=== PATIENT | female | born 1960 | race Caucasian/White ===

== ENCOUNTER 2017-05-19 16:40 | Inpatient (IN) | payer MEDICARE ==
--- NOTE | 2017-05-19 16:44 | PDOC ---
Rapid Medical Evaluation Time Seen by Provider: 05/19/17 16:44 Medical Evaluation: Allergies Allergy/AdvReac Type Severity Reaction Status Date / Time shellfish derived Allergy Unknown Rash Verified 03/20/13 18:11 hydrocodone bitartrate Allergy Verified 03/17/13 09:02 [From Vicodin] oxycodone HCl [From Percocet] Allergy Itching Verified 03/14/13 13:06 05/19/17 16:44 This is a 56 year old female with a history of IDDM, chronic inflammatory demyelinating polyneuropathy, HTN, hypothyroidism, polycystic kidney disease, cirrhosis of the liver presenting with 4 weeks of fevers/chills, hyperglycemia, weakness, malaise, poor appetite, nausaea/vomiting, and cough. V/s notable for P 100, BP 153/101. Alert, oriented, anxious. RRR, S1/S2, no murmurs. Lungs CTAB. Skin moist. EKG CXR Influenza swab Labs including CBC, CMP, VBG, acetone, UA To Main ED for further evaluation
[2017-05-19 17:27] LABS: BASO % 0.8 % (0-2.0); EOS % 0.8 % (0-4.5); MCH 31.9 pg (25.7-33.7); MCHC 34.7 g/dl (32.0-36.0); MEAN CELL VOLUME 92.2 fl (80-96); MEAN PLT VOLUME 9.4 fl (7.5-11.1); PLATELET COUNT 180 K/MM3 (134-434); RDW 13.1 % (11.6-15.6); WHITE BLOOD COUNT 7.7 K/mm3 (4.0-10.0)
[2017-05-19 18:08] LABS: VENOUS BLOOD GAS HCO3 28.5 meq/L (19-25); VENOUS PH 7.4 (7.32-7.42)
[2017-05-19 18:24] LABS: ALBUMIN 3.1 g/dl (3.4-5.0); ANION GAP 15 (8-16); CALCIUM 8.8 mg/dL (8.5-10.1); CO2 27 mmol/L (21-32); CREATININE 1.2 mg/dL (0.55-1.02); GLUCOSE,RANDOM 278 mg/dL (74-106); MAGNESIUM 1.3 mg/dL (1.8-2.4); SGOT/AST 29 U/L (15-37); SGPT/ALT 23 U/L (12-78)
[2017-05-19 18:25] LABS: ALK PHOS 116 U/L (45-117); BILIRUBIN,TOTAL 1.8 mg/dL (0.2-1.0); TOT PROT 6.9 g/dl (6.4-8.2)
--- NOTE | 2017-05-19 18:32 | PDOC ---
History of Present Illness - General History Source: Patient Exam Limitations: No Limitations - History of Present Illness Initial Comments: 05/19/17 18:21 The patient is a 56F with a PMH of IDDM, HTN, hypothyroidism, polycystic kidney disease, cirrhosis of liver, chronic inflammatory demyelenating polyneuropathy, who presents to the ED with complaints of weakness and nausea. The patient states that 3-4 weeks ago she began feeling weak, nauseous and "just awful". She has not been eating and drinking well of recent. She was home alone today ( lives with her daughter) and said she felt scared that she was not feeling well and decided to come to the ER. Her primary physicians are at [facility]. <Jeronimo Wood - Last Filed: 05/19/17 19:08> <Claudine Elizalde - Last Filed: 05/19/17 22:19> - General Chief Complaint: Weakness Stated Complaint: WEAKNESS Time Seen by Provider: 05/19/17 16:44 Past History - Past Medical History Anemia: Yes Asthma: No Cancer: No Cardiac Disorders: No CVA: No COPD: No CHF: No Dementia: No Diabetes: Yes (DM) GI Disorders: Yes Disorders: No HTN: Yes Hypercholesterolemia: No Kidney Stones: Yes (polycystic kidney disease) Liver Disease: Yes Seizures: No Thyroid Disease: Yes - Surgical History Abdominal Surgery: No Appendectomy: No Cardiac Surgery: No Cholecystectomy: No Lung Surgery: No Neurologic Surgery: No Orthopedic Surgery: Yes (bunion sx) - Immunization History Td Vaccination: Yes Immunization Up to Date: Yes - Suicide/Smoking/Psychosocial Hx Smoking Status: Yes Smoking History: Former smoker Years of Tobacco Use: 0 Have you smoked in the past 12 months: No Number of Cigarettes Smoked Daily: 0 If you are a former smoker, when did you quit?: 23 years ago Cigars Per Day: 0 Information on smoking cessation initiated: No Hx Alcohol Use: No Drug/Substance Use Hx: No Substance Use Type: None Hx Substance Use Treatment: No <Jeronimo Wood - Last Filed: 05/19/17 19:08> <Claudine Elizalde - Last Filed: 05/19/17 22:19> - Past Medical History Allergies/Adverse Reactions: Allergies Allergy/AdvReac Type Severity Reaction Status Date / Time shellfish derived Allergy Unknown Rash Verified 05/19/17 16:45 hydrocodone bitartrate Allergy Verified 05/19/17 16:45 [From Vicodin] oxycodone HCl [From Percocet] Allergy Itching Verified 05/19/17 16:45 Home Medications: Ambulatory Orders Cyanocobalamin Vit B-12 Inj. [Vitamin B12 Injection -] 1,000 mcg IM Mo #0 vial 02/20/13 Folic Acid - 1 mg PO DAILY #0 tablet NS 02/20/13 Gabapentin [Neurontin] 600 mg PO Q6H #0 tablet 02/20/13 Lidocaine 5% Patch [Lidoderm -] 1 patch TP DAILY #0 patch 02/20/13 Magnesium Oxide [Mag-Ox -] 400 mg PO BID #0 tablet 02/20/13 Methyl-B12/l-Mefolate/B6 Phos [Metanx Tablet] 1 tab PO BID #0 tablet 02/20/13 Metoprolol Succinate [Toprol XL -] 50 mg PO DAILY #0 tab.sr.24h 02/20/13 Sitagliptin Phos/Metformin HCl [Janumet 50-500 mg Tablet] 1 each PO BIDAC #0 tablet 02/20/13 Tramadol HCl 50 mg PO Q6H PRN #0 tablet 02/20/13 Ergocalciferol (Vitamin D2) [Vitamin D2] 2,000 unit PO DAILY 03/14/13 Insulin (Levemir) [Levemir Flexpen -] 54 units SQ DAILY@0700 05/19/17 Levothyroxine [Synthroid -] 137 mcg PO DAILY 05/19/17 Lisinopril 20 mg PO DAILY 05/19/17 Multivitamin [One Daily] 1 each PO DAILY 05/19/17 Mycophenolate Mofetil 1,000 mg PO BID 05/19/17 Potassium Chloride 20 meq PO BID 05/19/17 Review of Systems - Review of Systems Able to Perform ROS?: Yes Comments:: 05/19/17 18:39 GENERAL/CONSTITUTIONAL: No fever or chills. No weakness. HEAD, EYES, EARS, NOSE AND THROAT: No change in vision. No ear pain or discharge. No sore throat. GASTROINTESTINAL: Positive for nausea and diarrhea. No constipation or abdominal pain. GENITOURINARY: Positive for b/l flank pain. No dysuria, frequency, hematuria, or change in urination. CARDIOVASCULAR: No chest pain, palpitations, or lightheadedness. RESPIRATORY: No cough, wheezing, shortness of breath, or hemoptysis. MUSCULOSKELETAL: No joint or muscle swelling or pain. No neck or back pain. SKIN: No rash or lesions. NEUROLOGIC: No headache, or new onset numbness, tingling, weakness, loss of consciousness, or change in strength/sensation. ENDOCRINE: No increased thirst. No abnormal weight change. HEMATOLOGIC/LYMPHATIC: No anemia, easy bleeding, or history of blood clots. ALLERGIC/IMMUNOLOGIC: No hives or skin allergy. <Jeronimo Wood - Last Filed: 05/19/17 19:08> *Physical Exam - Vital Signs Last Vital Signs Temp Pulse Resp BP Pulse Ox 99.7 F H 101 H 19 153/101 95 05/19/17 16:45 05/19/17 16:45 05/19/17 16:45 05/19/17 16:45 05/19/17 16:45 - Physical Exam Comments: 05/19/17 18:40 GENERAL: Well developed, well nourished. Awake and alert. No acute distress. HEENT: Normocephalic, atraumatic. Hearing grossly normal. Moist mucous membranes. PERRLA, EOMI. No conjunctival pallor. Sclera are non-icteric. Oropharynx is clear. NECK: Supple. Full ROM. No JVD. CARDIOVASCULAR: Regular rate and rhythm. No murmurs, rubs, or gallops. Distal pulses are 2+ and symmetric. PULMONARY: No evidence of respiratory distress. Lungs clear to auscultation bilaterally. No wheezing, rales or rhonchi. ABDOMINAL: Soft. Non-tender. Non-distended. No rebound or guarding. 2-3 cm nonincarcerated, nonstrangulated hernia in infra-umbilicus. No organomegaly. Normoactive bowel sounds. GENITOURINARY: CVA tenderness bilaterally. MUSCULOSKELETAL: Normal range of motion at all joints. No bony deformities or tenderness. EXTREMITIES: No cyanosis. No clubbing. No edema. No calf tenderness. SKIN: Warm and dry. Normal capillary refill. No rashes. No jaundice. NEUROLOGICAL: Alert, awake, appropriate. Cranial nerves 2-12 intact. Normal speech. PSYCHIATRIC: Cooperative. Good eye contact. Appropriate mood and affect. <Jeronimo Wood - Last Filed: 05/19/17 19:08> - Vital Signs Last Vital Signs Temp Pulse Resp BP Pulse Ox 100.6 F H 101 H 19 153/101 95 05/19/17 19:16 05/19/17 16:45 05/19/17 16:45 05/19/17 16:45 05/19/17 16:45 <TonioClaudine - Last Filed: 05/19/17 22:19> ED Treatment Course - LABORATORY CBC & Chemistry Diagram: 05/19/17 17:00 05/19/17 17:00 - ADDITIONAL ORDERS Additional order review: Laboratory Results 05/19/17 17:00 VBG pH 7.40 POC VBG pCO2 46.9 POC VBG pO2 33.2 Mixed VBG HCO3 28.5 H 05/19/17 17:00 RBC 4.61 D MCV 92.2 MCHC 34.7 RDW 13.1 D MPV 9.4 Neutrophils % 70.0 Lymphocytes % 23.1 Monocytes % 5.3 Eosinophils % 0.8 Basophils % 0.8 <Jeronimo Wood - Last Filed: 05/19/17 19:08> - LABORATORY CBC & Chemistry Diagram: 05/19/17 17:00 05/19/17 17:00 - ADDITIONAL ORDERS Additional order review: Laboratory Results 05/19/17 05/19/17 05/19/17 19:50 18:24 17:00 VBG pH POC VBG pCO2 POC VBG pO2 Mixed VBG HCO3 Sodium Potassium Chloride Carbon Dioxide Anion Gap BUN Creatinine Creat Clearance w eGFR POC Glucometer [phone] Random Glucose Lactic Acid 2.8 H* Calcium Magnesium Total Bilirubin AST ALT Alkaline Phosphatase Total Protein Albumin Urine Color [place] Urine Appearance Cloudy Urine pH 6.0 Ur Specific [place] 1.016 Urine Protein 1+ H Urine Glucose (UA) 3+ H Urine Ketones 1+ H Urine Blood 1+ H Urine Nitrite Positive Urine Bilirubin Negative Urine Urobilinogen Negative Acetone, Qual 05/19/17 05/19/17 17:00 17:00 VBG pH 7.40 POC VBG pCO2 46.9 POC VBG pO2 33.2 Mixed VBG HCO3 28.5 H Sodium 136 Potassium 3.1 L D Chloride 94 L D Carbon Dioxide 27 Anion Gap 15 BUN 12 Creatinine 1.2 H D Creat Clearance w eGFR 46.14 POC Glucometer Random Glucose 278 H D Lactic Acid Calcium 8.8 Magnesium 1.3 L Total Bilirubin 1.8 H D AST 29 D ALT 23 D Alkaline Phosphatase 116 D Total Protein 6.9 D Albumin 3.1 L D Urine Color Urine Appearance Urine pH Ur Specific [place] Urine Protein Urine Glucose (UA) Urine Ketones Urine Blood Urine Nitrite Urine Bilirubin Urine Urobilinogen Acetone, Qual Positive small 1+ H 05/19/17 17:00 Influenza Types A,B Antigen (MAYI) - Preliminary Nasopharyngeal Swab - Preliminary 05/19/17 05/19/17 18:24 17:00 RBC 4.61 D MCV 92.2 MCHC 34.7 RDW 13.1 D MPV 9.4 Neutrophils % 70.0 Lymphocytes % 23.1 Monocytes % 5.3 Eosinophils % 0.8 Basophils % 0.8 POC Glucometer [phone] - Medications Given in the ED: ED Medications Discontinued Medications Generic Name Dose Route Start Last Admin Trade Name Freq PRN Reason Stop Dose Admin Acetaminophen 1,000 mg 05/19/17 19:14 05/19/17 19:21 Ofirmev Injection - IVPB 05/19/17 19:15 1,000 mg ONCE ONE Administration Magnesium Sulfate 2 gm 05/19/17 21:19 05/19/17 21:51 Magnesium Sulfate IVPB 05/19/17 21:20 2 gm ONCE ONE Administration Potassium Chloride 40 meq 05/19/17 21:19 05/19/17 21:50 K-Dur - PO 05/19/17 21:20 40 meq ONCE ONE Administration <Claudine Elizalde - Last Filed: 05/19/17 22:19> Medical Decision Making - Medical Decision Making 05/19/17 18:41 The patient is a 56F with a PMH of HTN, liver cirrhosis, IDDM, CIDP, who presents with 3-4 weeks of weakness and nausea. I am concerned for DKA, infection, and ACS. Pending EKG. Will monitor closely. CBC and VBG WNL. Pending chemistry and acetone. BGL is 305. Will begin fluids while labs are pending. 05/19/17 19:08 Patient signed out to night team, Dr. Elizalde. <Jeronimo Wood - Last Filed: 05/19/17 19:08> *DC/Admit/Observation/Transfer <Jeronimo Wood - Last Filed: 05/19/17 19:08> - Discharge Dispostion Admit: No <Claudine Elizalde - Last Filed: 05/19/17 22:19> Diagnosis at time of Disposition: Fever Qualifiers: Fever type: due to other condition Qualified Code(s): R50.81 - Fever presenting with conditions classified elsewhere UTI (urinary tract infection) Qualifiers: Urinary tract infection type: acute cystitis Hematuria presence: without hematuria Qualified Code(s): N30.00 - Acute cystitis without hematuria Diabetes Qualifiers: Diabetes mellitus type: type 2 Diabetes mellitus complication status: with hyperglycemia Diabetes mellitus retirement insulin use: with intermediate frame tender use Qualified Code(s): E11.65 - Type 2 diabetes mellitus with hyperglycemia - Discharge Dispostion Condition at time of disposition: Good
[2017-05-19] MEDS ORDERED: ACETAMINOPHEN 1000 MG/100 ML VIAL (NON FORMULARY) IVPB ONE (19:14)
[2017-05-19] MEDS ORDERED: ACETAMINOPHEN INJECTION 100 ML IVPB ONE (19:18)
[2017-05-19 20:06] LABS: URINE APPEARANCE CLOUDY; URINE BILIRUBIN NEGATIVE (NEGATIVE); URINE BLOOD 1+ (NEGATIVE); URINE COLOR AMBER; URINE GLUCOSE (UA) 3+ (NEGATIVE); URINE KETONE 1+ (NEGATIVE); URINE NITRITE POSITIVE (NEGATIVE); URINE UROBILINOGEN NEGATIVE mg/dL (0.2-1.0)
[2017-05-19 20:25] LABS: URINE LEUK ESTERASE 3+ (NEGATIVE); URINE PROTEIN 1+ (NEGATIVE)
[2017-05-19 21:19] LABS: ACETONE SERUM POSITIVE SMALL 1+ (NEGATIVE)
[2017-05-19] MEDS ORDERED: POTASSIUM CHLORIDE TABS 20 MEQ TABLET.ER (FP) PO ONE ×2 (21:19→21:38)
[2017-05-19] MEDS ORDERED: MAGNESIUM SULF 50% (8.12 MEQ/2 ML-1 GM VIAL) IVPB ONE (21:19)
[2017-05-19] MEDS ORDERED: MAGNESIUM SULF 50% (8.12 MEQ/2 ML-1 GM VIAL) ONE (21:38)
[2017-05-19] MEDS ORDERED: PIPERACILLIN/TAZOB 3.375 GM 50 ML IVPB ONE (21:54)
--- NOTE | 2017-05-19 22:19 | PDOC ---
*Physical Exam - Vital Signs Last Vital Signs Temp Pulse Resp BP Pulse Ox 100.6 F H 101 H 19 153/101 95 05/19/17 19:16 05/19/17 16:45 05/19/17 16:45 05/19/17 16:45 05/19/17 16:45 <Claudine Elizalde - Last Filed: 05/19/17 22:19> - Vital Signs Last Vital Signs Temp Pulse Resp BP Pulse Ox 100.6 F H 101 H 19 153/101 95 05/19/17 19:16 05/19/17 16:45 05/19/17 16:45 05/19/17 16:45 05/19/17 16:45 - Physical Exam Comments: 05/19/17 22:23 The patient is a 56-year-old female with a significant past medical history of chronic inflammatory demyelinating polyneuropathy and DM, who presents to the emergency department with generalized malaise, vomiting and nausea for 1 week. She reports hx of frequent UTIs and due to her medical condition she does not get the symptoms such as burning or dysuria she just starts not feeling well. CONSTITUTIONAL: Present: generalized malaise. Absent: fever, no chills, no fatigue EYES: Absent: visual changes ENT: Absent: ear pain, no sore throat CARDIOVASCULAR: Absent: chest pain, no palpitations RESPIRATORY: Absent: cough, no SOB GI: Present: vomiting, nausea Absent: abdominal pain, no constipation, no diarrhea GENITOURINARY: Absent: dysuria, no frequency, no hematuria MUSCULOSKELETAL: Absent: back pain, no arthralgia, no myalgia SKIN: Absent: rash NEURO: Absent: headache GENERAL: Well-appearing, well-nourished. No apparent distress. HEENT: Normocephalic, atraumatic. PERRL, EOM intact. CARDIOVASCULAR: Normal S1, S2. Regular rate and rhythm. PULMONARY: Clear to auscultation bilaterally. ABDOMEN: +Diffuse abdominal tenderness, Umbilical hernia not reducible all the way. Soft, non-distended. EXTREMITIES: Normal ROM in all four extremities. No gross deformities. SKIN: Warm, dry. No rash NEUROLOGICAL: No focal neurological deficits. <Jayashree Raman - Last Filed: 05/19/17 22:25> ED Treatment Course - LABORATORY CBC & Chemistry Diagram: 05/19/17 17:00 12/19/17 17:00 - ADDITIONAL ORDERS Additional order review: Laboratory Results 05/19/17 05/19/17 05/19/17 19:50 18:24 17:00 VBG pH POC VBG pCO2 POC VBG pO2 Mixed VBG HCO3 Sodium Potassium Chloride Carbon Dioxide Anion Gap BUN Creatinine Creat Clearance w eGFR POC Glucometer [phone] Random Glucose Lactic Acid 2.8 H* Calcium Magnesium Total Bilirubin AST ALT Alkaline Phosphatase Total Protein Albumin Urine Color [place] Urine Appearance Cloudy Urine pH 6.0 Ur Specific [place] 1.016 Urine Protein 1+ H Urine Glucose (UA) 3+ H Urine Ketones 1+ H Urine Blood 1+ H Urine Nitrite Positive Urine Bilirubin Negative Urine Urobilinogen Negative Acetone, Qual 05/19/17 05/19/17 17:00 17:00 VBG pH 7.40 POC VBG pCO2 46.9 POC VBG pO2 33.2 Mixed VBG HCO3 28.5 H Sodium 136 Potassium 3.1 L D Chloride 94 L D Carbon Dioxide 27 Anion Gap 15 BUN 12 Creatinine 1.2 H D Creat Clearance w eGFR 46.14 POC Glucometer Random Glucose 278 H D Lactic Acid Calcium 8.8 Magnesium 1.3 L Total Bilirubin 1.8 H D AST 29 D ALT 23 D Alkaline Phosphatase 116 D Total Protein 6.9 D Albumin 3.1 L D Urine Color Urine Appearance Urine pH Ur Specific [place] Urine Protein Urine Glucose (UA) Urine Ketones Urine Blood Urine Nitrite Urine Bilirubin Urine Urobilinogen Acetone, Qual Positive small 1+ H 05/19/17 17:00 Influenza Types A,B Antigen (MAYI) - Preliminary Nasopharyngeal Swab - Preliminary 05/19/17 05/19/17 18:24 17:00 RBC 4.61 D MCV 92.2 MCHC 34.7 RDW 13.1 D MPV 9.4 Neutrophils % 70.0 Lymphocytes % 23.1 Monocytes % 5.3 Eosinophils % 0.8 Basophils % 0.8 POC Glucometer [phone] - Medications Given in the ED: ED Medications Discontinued Medications Generic Name Dose Route Start Last Admin Trade Name Freq PRN Reason Stop Dose Admin Acetaminophen 1,000 mg 05/19/17 19:14 05/19/17 19:21 Ofirmev Injection - IVPB 05/19/17 19:15 1,000 mg ONCE ONE Administration Magnesium Sulfate 2 gm 05/19/17 21:19 05/19/17 21:51 Magnesium Sulfate IVPB 05/19/17 21:20 2 gm ONCE ONE Administration Potassium Chloride 40 meq 05/19/17 21:19 05/19/17 21:50 K-Dur - PO 05/19/17 21:20 40 meq ONCE ONE Administration <Claudine Elizalde - Last Filed: 05/19/17 22:19> - LABORATORY CBC & Chemistry Diagram: 05/19/17 17:00 05/19/17 17:00 - ADDITIONAL ORDERS Additional order review: Laboratory Results 05/19/17 05/19/17 05/19/17 19:50 18:24 17:00 VBG pH POC VBG pCO2 POC VBG pO2 Mixed VBG HCO3 Sodium Potassium Chloride Carbon Dioxide Anion Gap BUN Creatinine Creat Clearance w eGFR POC Glucometer [phone] Random Glucose Lactic Acid 2.8 H* Calcium Magnesium Total Bilirubin AST ALT Alkaline Phosphatase Total Protein Albumin Urine Color [place] Urine Appearance Cloudy Urine pH 6.0 Ur Specific [place] 1.016 Urine Protein 1+ H Urine Glucose (UA) 3+ H Urine Ketones 1+ H Urine Blood 1+ H Urine Nitrite Positive Urine Bilirubin Negative Urine Urobilinogen Negative Acetone, Qual 05/19/17 05/19/17 17:00 17:00 VBG pH 7.40 POC VBG pCO2 46.9 POC VBG pO2 33.2 Mixed VBG HCO3 28.5 H Sodium 136 Potassium 3.1 L D Chloride 94 L D Carbon Dioxide 27 Anion Gap 15 BUN 12 Creatinine 1.2 H D Creat Clearance w eGFR 46.14 POC Glucometer Random Glucose 278 H D Lactic Acid Calcium 8.8 Magnesium 1.3 L Total Bilirubin 1.8 H D AST 29 D ALT 23 D Alkaline Phosphatase 116 D Total Protein 6.9 D Albumin 3.1 L D Urine Color Urine Appearance Urine pH Ur Specific [place] Urine Protein Urine Glucose (UA) Urine Ketones Urine Blood Urine Nitrite Urine Bilirubin Urine Urobilinogen Acetone, Qual Positive small 1+ H 05/19/17 17:00 Influenza Types A,B Antigen (MAYI) - Preliminary Nasopharyngeal Swab - Preliminary 05/19/17 05/19/17 18:24 17:00 RBC 4.61 D MCV 92.2 MCHC 34.7 RDW 13.1 D MPV 9.4 Neutrophils % 70.0 Lymphocytes % 23.1 Monocytes % 5.3 Eosinophils % 0.8 Basophils % 0.8 POC Glucometer [phone] - Medications Given in the ED: ED Medications Discontinued Medications Generic Name Dose Route Start Last Admin Trade Name Jasen PRN Reason Stop Dose Admin Acetaminophen 1,000 mg 05/19/17 19:14 05/19/17 19:21 Ofirmev Injection - IVPB 05/19/17 19:15 1,000 mg ONCE ONE Administration Magnesium Sulfate 2 gm 05/19/17 21:19 05/19/17 21:51 Magnesium Sulfate IVPB 05/19/17 21:20 2 gm ONCE ONE Administration Potassium Chloride 40 meq 05/19/17 21:19 05/19/17 21:50 K-Dur - PO 05/19/17 21:20 40 meq ONCE ONE Administration <Jayashree Raman - Last Filed: 05/19/17 22:25> *DC/Admit/Observation/Transfer - Discharge Dispostion Admit: Yes Decision to Admit order Date/Time: Decision to Admit Order Category Date Time Status Decision to Admit to Hospital Routine Admission 05/19/17 22:02 Active <Claudine Elizalde - Last Filed: 05/19/17 22:19> - Attestations Scribe Attestion: 05/19/17 22:25 Documentation prepared by KP Hayes, acting as medical technologist microbiology for Claudine Elizalde MD/DO. <Jayashree Raman - Last Filed: 05/19/17 22:25> Diagnosis at time of Disposition: Fever Qualifiers: Fever type: due to other condition Qualified Code(s): R50.81 - Fever presenting with conditions classified elsewhere UTI (urinary tract infection) Qualifiers: Urinary tract infection type: acute cystitis Hematuria presence: without hematuria Qualified Code(s): N30.00 - Acute cystitis without hematuria Diabetes Qualifiers: Diabetes mellitus type: type 2 Diabetes mellitus complication status: with hyperglycemia Diabetes mellitus superintendent marine oil terminal insulin use: with superintendent marine oil terminal use Qualified Code(s): E11.65 - Type 2 diabetes mellitus with hyperglycemia - Discharge Dispostion Condition at time of disposition: Good
[2017-05-19] MEDS ORDERED: PIPERACILLIN/TAZOB 3.375 GM 3.375 GM/50 ML BAG IVPB ONE (22:26)
[2017-05-19 22:48] LABS: URINE LEUK ESTERASE 1+ (NEGATIVE)
[2017-05-19 23:12] LABS: URINE BACTERIA RARE /hpf (NONE SEEN); URINE MUCUS RARE; URINE RBC 13 /hpf (0-3); URINE WBC 1738 /hpf (3-5)
--- NOTE | 2017-05-19 23:13 | PN ---
Teaching Attending Note Name of Resident: Khalif Limon ATTENDING PHYSICIAN STATEMENT I saw and evaluated the patient. I reviewed the resident's note and discussed the case with the resident. I agree with the resident's findings and plan as documented. SUBJECTIVE: 56 yo F with chronic inflammatory demylinating polyneuropathy, DM and chronic UTI's presents with mailaise, nausea and vomiting. Does not feel urinary burning /dysuria, but does have malaise with her urinary tract infections. No shortness of breath OBJECTIVE: Physical: VS: Vital Signs Period Temp Pulse Resp BP Sys/Muñoz Pulse Ox Last 24 Hr 99.4 F-100.6 F 71-101 18-19 111-153/67-101 91-95 02 95% RA, 91 in chart not correct GEN: NAD, Resting in bed, AA0X3 HEENT: NCAT, PERRL, Throat without erythema or exudates CARD: RRR S1, S2 RESP: CTAB ABD: BSX4, NTD to palpation, Umbilical hernia, + CVA tenderness EXT: - C/C/E CBCD WBC 7.7 K/mm3 (4.0-10.0) 05/19/17 17:00 RBC 4.61 M/mm3 (3.60-5.2) D 05/19/17 17:00 Hgb 14.7 GM/dL (10.7-15.3) D 05/19/17 17:00 Hct 42.4 % (32.4-45.2) D 05/19/17 17:00 MCV 92.2 fl (80-96) 05/19/17 17:00 MCHC 34.7 g/dl (32.0-36.0) 05/19/17 17:00 RDW 13.1 % (11.6-15.6) D 05/19/17 17:00 Plt Count 180 K/MM3 (134-434) D 05/19/17 17:00 MPV 9.4 fl (7.5-11.1) 05/19/17 17:00 CMP Sodium 136 mmol/L (136-145) 05/19/17 17:00 Potassium 3.1 mmol/L (3.5-5.1) L D 05/19/17 17:00 Chloride 94 mmol/L (98-107) L D 05/19/17 17:00 Carbon Dioxide 27 mmol/L (21-32) 05/19/17 17:00 Anion Gap 15 (8-16) 05/19/17 17:00 BUN 12 mg/dL (7-18) 05/19/17 17:00 Creatinine 1.2 mg/dL (0.55-1.02) H D 05/19/17 17:00 Creat Clearance w eGFR 46.14 (>60) 05/19/17 17:00 Calcium 8.8 mg/dL (8.5-10.1) 05/19/17 17:00 Total Bilirubin 1.8 mg/dL (0.2-1.0) H D 05/19/17 17:00 AST 29 U/L (15-37) D 05/19/17 17:00 ALT 23 U/L (12-78) D 05/19/17 17:00 Alkaline Phosphatase 116 U/L (45-117) D 05/19/17 17:00 Total Protein 6.9 g/dl (6.4-8.2) D 05/19/17 17:00 Albumin 3.1 g/dl (3.4-5.0) L D 05/19/17 17:00 Urine Test Results Urine Color [place] 05/19/17 19:50 Urine Appearance Cloudy 05/19/17 19:50 Urine pH 6.0 (5.0-8.0) 05/19/17 19:50 Ur Specific [place] 1.016 (1.001-1.035) 05/19/17 19:50 Urine Protein 1+ (NEGATIVE) H 05/19/17 19:50 Urine Glucose (UA) 3+ (NEGATIVE) H 05/19/17 19:50 Urine Ketones 1+ (NEGATIVE) H 05/19/17 19:50 Urine Blood 1+ (NEGATIVE) H 05/19/17 19:50 Urine Nitrite Positive (NEGATIVE) 05/19/17 19:50 Urine Bilirubin Negative (NEGATIVE) 05/19/17 19:50 Ur Leukocyte Esterase 1+ (NEGATIVE) H 05/19/17 19:50 Ur Epithelial Cells Moderate /HPF (FEW) 05/19/17 19:50 Urine Bacteria Rare /hpf (NONE SEEN) 05/19/17 19:50 Urine Mucus Rare 05/19/17 19:50 Ambulatory Orders Cyanocobalamin Vit B-12 Inj. [Vitamin B12 Injection -] 1,000 mcg IM Mo #0 vial 02/20/13 Folic Acid - 1 mg PO DAILY #0 tablet NS 02/20/13 Gabapentin [Neurontin] 600 mg PO Q6H #0 tablet 02/20/13 Lidocaine 5% Patch [Lidoderm -] 1 patch TP DAILY #0 patch 02/20/13 Magnesium Oxide [Mag-Ox -] 400 mg PO BID #0 tablet 02/20/13 Methyl-B12/l-Mefolate/B6 Phos [Metanx Tablet] 1 tab PO BID #0 tablet 02/20/13 Metoprolol Succinate [Toprol XL -] 50 mg PO DAILY #0 tab.sr.24h 02/20/13 Sitagliptin Phos/Metformin HCl [Janumet 50-500 mg Tablet] 1 each PO BIDAC #0 tablet 02/20/13 Tramadol HCl 50 mg PO Q6H PRN #0 tablet 02/20/13 Ergocalciferol (Vitamin D2) [Vitamin D2] 2,000 unit PO DAILY 03/14/13 Insulin (Levemir) [Levemir Flexpen -] 54 units SQ DAILY@0700 05/19/17 Levothyroxine [Synthroid -] 137 mcg PO DAILY 05/19/17 Lisinopril 20 mg PO DAILY 05/19/17 Multivitamin [One Daily] 1 each PO DAILY 05/19/17 Mycophenolate Mofetil 1,000 mg PO BID 05/19/17 Potassium Chloride 20 meq PO BID 05/19/17 EKG: Q waves inferior leads, lateral leads, QtC 508 CXR- No acute process ASSESSMENT AND PLAN: 56 yo F with chronic inflammatory demylinating polyneuropathy, HTN, Hypothyriodism, DM and chronic UTI's presents with mailaise, found to be septic due to uti 1.) Severe Sepsis Secondary to Pyelonephritis - Immunocompromised due to Cell Cept - Hernandez Cx - IVF gentle - Repeat LA - Ceftriaxone, Prior + Kleb-sens - Ct abdomen wo con 2.) DM - FS - RAISS - Hold Janumet 3.) Chronic Demylinating Polyneuropathy - C/W Home meds - Cell Cept level 4.) WINTER - IVF - Avoid nephrotoxins - CellCept level - Trend Cr - U lytes 5.) Prolonged QtC - Replete K, Mg2+ - Monitor - Avoid Prolonging meds - Hold Ry 6.) Hypothyriodism - Chk. TSH - C/W Levothyroxine 7.) Dvt Ppx - Heparin [address] in Obs
[2017-05-20] MEDS ORDERED: SODIUM CHLORIDE 1,000 ML IV SCH (02:15)
--- NOTE | 2017-05-20 02:27 | HP ---
CHIEF COMPLAINT: "Another UTI" PCP: None HISTORY OF PRESENT ILLNESS: 56 yo F w/ pmh of IDDM, hypothyroidism, PKD, liver cirrhosis, and chronic inflammatory demyelinating polyneuropathy who presented to the ED in the setting of 3-4 weeks of progressive malaise/fatigue w/ accompanying persistent productive cough, diarrhea/abdominal pain and poor PO intake. At baseline, Pt takes Cellcept chronically for CIDP and endorses a hx of 8x UTIs/pyelonephritis over the past year, each requiring hospitalization, most notable for an ICU admission in September for 1.5 months for severe sepsis secondary to UTI. Per pt, 3-4 wks began having productive cough, diarrhea/nausea, general malaise and weakness. Pt states these symptoms are similar to prior UTIs in the past. She denies any dysuria, pyuria, hematuria or other infectious symptoms at the time. These symptoms have continued to persist until her current visit, as well as recent subjective chills/fevers, continued poor PO intake and persistent chronic band-like abdominal pain and BL flank pain over the past few days. She denies any LIM, SOB, CP, palpitations, dysuria, constipation, new rashes, new neuro symptoms. She denies any recent travel or sick contacts. Pt states she has been off Cellcept for past 3 months due to chronic infections. She currently has no PCP. ER course was notable for: (1) Lactic acid 2.8 (2) UA + leuk esterase, nitrites (3)Temp 100.6 Recent Travel: No PAST MEDICAL HISTORY: Multiple UTIs (8x over last years, admitted every time) Pyelonephritis x2 C diff infection 02/15 at [facility], 10/15 at [facility] [place] CIDP IDDM HTN Hypothyroidism polycystic kidney dz Cirrhosis Diabetic neuropathy PAST SURGICAL HISTORY: Bunion removal Social History: Smoking: Prior smoker in 20s Alcohol: Social drinker, 2-3 drinks Drugs: None On disability, requires wheelchair for transport due to chronic LE weakness Family History: Allergies shellfish derived Allergy (Unknown, Verified 05/19/17 16:45) Rash pt reports allergy to shellfish hydrocodone bitartrate [From Vicodin] Allergy (Verified 05/19/17 16:45) patient relayed it made her disoriented oxycodone HCl [From Percocet] Allergy (Verified 05/19/17 16:45) Itching HOME MEDICATIONS: Home Medications Medication Instructions Recorded Cyanocobalamin Vit B-12 Inj. 1,000 mcg IM Mo #0 vial 02/20/13 [Vitamin B12 Injection -] Folic Acid - 1 mg PO DAILY #0 tablet NS 02/20/13 Gabapentin [Neurontin] 600 mg PO Q6H #0 tablet 02/20/13 Lidocaine 5% Patch [Lidoderm -] 1 patch TP DAILY #0 patch 02/20/13 Magnesium Oxide [Mag-Ox -] 400 mg PO BID #0 tablet 02/20/13 Methyl-B12/l-Mefolate/B6 Phos 1 tab PO BID #0 tablet 02/20/13 [Metanx Tablet] Metoprolol Succinate [Toprol XL -] 50 mg PO DAILY #0 tab.sr.24h 02/20/13 Sitagliptin Phos/Metformin HCl 1 each PO BIDAC #0 tablet 02/20/13 [Janumet 50-500 mg Tablet] Tramadol HCl 50 mg PO Q6H PRN #0 tablet 02/20/13 Ergocalciferol (Vitamin D2) 2,000 unit PO DAILY 03/14/13 [Vitamin D2] Insulin (Levemir) [Levemir Flexpen 54 units SQ DAILY@0700 05/19/17 -] Levothyroxine [Synthroid -] 137 mcg PO DAILY 05/19/17 Lisinopril 20 mg PO DAILY 05/19/17 Multivitamin [One Daily] 1 each PO DAILY 05/19/17 Mycophenolate Mofetil 1,000 mg PO BID 05/19/17 Potassium Chloride 20 meq PO BID 05/19/17 REVIEW OF SYSTEMS CONSTITUTIONAL: malaise, generalized weakness, loss of appetite, Absent: fever, chills, diaphoresis, weight change HEENT: Absent: rhinorrhea, nasal congestion, throat pain, throat swelling, difficulty swallowing, mouth swelling, ear pain, eye pain, visual changes CARDIOVASCULAR: Absent: chest pain, syncope, palpitations, irregular heart rate, lightheadedness , peripheral edema RESPIRATORY: cough Absent: shortness of breath, dyspnea with exertion, orthopnea, wheezing, stridor , hemoptysis GASTROINTESTINAL: abdominal pain, diarrhea, Absent: abdominal distension, nausea, vomiting, constipation, melena, hematochezia GENITOURINARY: flank pain Absent: dysuria, frequency, urgency, hesitancy, hematuria, genital pain MUSCULOSKELETAL: Absent: myalgia, arthralgia, joint swelling, back pain, neck pain SKIN: Absent: rash, itching, pallor HEMATOLOGIC/IMMUNOLOGIC: frequent UTIs Absent: easy bleeding, easy bruising, lymphadenopathy, ENDOCRINE: Absent: unexplained weight gain, unexplained weight loss, heat intolerance, cold intolerance NEUROLOGIC: unsteady gait, BL LE chronic weakness Absent: headache, focal weakness or paresthesias, dizziness, seizure, mental status changes, bladder or bowel incontinence PSYCHIATRIC: Absent: anxiety, depression, suicidal or homicidal ideation, hallucinations. PHYSICAL EXAMINATION Vital Signs - 24 hr 05/19/17 05/19/17 05/19/17 16:45 19:16 22:53 Temperature 99.7 F H 100.6 F H 99.4 F Pulse Rate 101 H Pulse Rate [ 71 Right Radial] Respiratory 19 18 Rate Blood Pressure 153/101 Blood Pressure 111/67 [Right Arm] O2 Sat by Pulse 95 91 L Oximetry (%) GENERAL: Awake, alert, and fully oriented, in no acute distress. HEAD: Normal with no signs of trauma. EYES: Pupils equal, round and reactive to light, extraocular movements intact, sclera anicteric, conjunctiva clear. No lid lag. EARS, NOSE, THROAT: Ears normal, nares patent, oropharynx clear without exudates. Moist mucous membranes. NECK: Normal range of motion, supple without lymphadenopathy, JVD, or masses. LUNGS: Trace wheezing DERRICK. Otherwise CTA. no crackles. No accessory muscle use. HEART: Regular rate and rhythm, normal S1 and S2 without murmur, rub or gallop. ABDOMEN: Tender to superficial and deep palpation in midline subxiphoid and LUQ , with occasional voluntary guarding. Soft, not distended, Hypoactive bowel sounds, no rebound, no masses. Negative mayfield's. No hepatomegaly or splenomegaly. 2-3 cm umbilical hernia noted. MUSCULOSKELETAL: BL CVA tenderness. Normal range of motion at all joints. No bony deformities or tenderness. UPPER EXTREMITIES: 2+ pulses, warm, well-perfused. No cyanosis. No clubbing. No peripheral edema. LOWER EXTREMITIES: 1+ pulses DP BL, 2+ PT BL. BL cool to touch. No calf tenderness. No peripheral edema. NEUROLOGICAL: Cranial nerves II-XII intact. Normal speech. Normal gait. 5/5 strength in upper extremities, preserved light touch sensation. 2+ BL biceps reflexes. 2/5 flexion/extension at hip BL. 3/5 flex, extension at knees BL. 3/5 dorsiflexion BL, 4/5 plantar flexion BL. Unable to elicit patellar reflexes BL. No sensation to light touch in dorsal/plantar surfaces of feet BL, proprioception at ankles preserved BL. Sensation to light touch diminished BL in shanks, preserved in upper thighs BL. PSYCHIATRIC: Cooperative. Good eye contact. Appropriate mood and affect. SKIN: Warm, dry, normal turgor, no rashes or lesions noted, normal capillary refill. Laboratory Results - last 24 hr CBC, BMP 05/19/17 17:00 05/19/17 17:00 05/19/17 05/19/17 05/19/17 17:00 17:00 17:00 WBC 7.7 RBC 4.61 D Hgb 14.7 D Hct 42.4 D MCV 92.2 MCH 31.9 MCHC 34.7 RDW 13.1 D Plt Count 180 D MPV 9.4 Neutrophils % 70.0 Lymphocytes % 23.1 Monocytes % 5.3 Eosinophils % 0.8 Basophils % 0.8 VBG pH 7.40 POC VBG pCO2 46.9 POC VBG pO2 33.2 Mixed VBG HCO3 28.5 H Sodium 136 Potassium 3.1 L D Chloride 94 L D Carbon Dioxide 27 Anion Gap 15 BUN 12 Creatinine 1.2 H D Creat Clearance w eGFR 46.14 POC Glucometer Random Glucose 278 H D Lactic Acid Calcium 8.8 Magnesium 1.3 L Total Bilirubin 1.8 H D AST 29 D ALT 23 D Alkaline Phosphatase 116 D Total Protein 6.9 D Albumin 3.1 L D Urine Color Urine Appearance Urine pH Ur Specific [place] Urine Protein Urine Glucose (UA) Urine Ketones Urine Blood Urine Nitrite Urine Bilirubin Urine Urobilinogen Ur Leukocyte Esterase Urine WBC (Auto) Urine RBC (Auto) Ur Epithelial Cells Urine Bacteria Urine Mucus Acetone, Qual Positive small 1+ H 05/19/17 05/19/17 05/19/17 17:00 18:24 19:50 WBC RBC Hgb Hct MCV MCH MCHC RDW Plt Count MPV Neutrophils % Lymphocytes % Monocytes % Eosinophils % Basophils % VBG pH POC VBG pCO2 POC VBG pO2 Mixed VBG HCO3 Sodium Potassium Chloride Carbon Dioxide Anion Gap BUN Creatinine Creat Clearance w eGFR POC Glucometer [phone] Random Glucose Lactic Acid 2.8 H* Calcium Magnesium Total Bilirubin AST ALT Alkaline Phosphatase Total Protein Albumin Urine Color [place] Urine Appearance Cloudy Urine pH 6.0 Ur Specific [place] 1.016 Urine Protein 1+ H Urine Glucose (UA) 3+ H Urine Ketones 1+ H Urine Blood 1+ H Urine Nitrite Positive Urine Bilirubin Negative Urine Urobilinogen Negative Ur Leukocyte Esterase 1+ H Urine WBC (Auto) 1738 Urine RBC (Auto) 13 Ur Epithelial Cells Moderate Urine Bacteria Rare Urine Mucus Rare Acetone, Qual Microbiology 05/19/17 17:00 Nasopharyngeal Swab Influenza Types A,B Antigen (MAYI) - Preliminary 05/19/17 17:00 Nasopharyngeal Swab - Preliminary Studies: EKG 05/19 - Rate of 87, NAD, low voltage, QTC 502 Renal U/S 05/19 - Read pending CXR 05/19 - No evidence of focal consolidations, vascular congestion, pneumothorax. ASSESSMENT/PLAN: 56 yo F w/ pmh of IDDM, PKD, chronic inflammatory demyelinating polyneuropathy ( takes cellcept, currently off per pt), chronic UTIs who presented to the ED in the setting of 3-4 weeks of progressive malaise/fatigue, w/ productive cough, diarrhea/abdominal pain, w/ similar presentations to prior UTIs in past admissions this year. #Sepsis secondary to suspected pyelonephritis - Immunosuppressed. Multiple UTIs (8x) in past year. - IVFs - Cetriaxone 1g qD - Hernandez culture - Trend Lactate - CT abdomen w/o contrast - F/u renal u/s results - Trend fever, WBC count #DM2 - Confirm home levemir dose in AM. Currently on SS. Janumet held - BGM ACHS - ISS - F/u home levemir dosing - Hold Janumet #CIDP - Wheelchair-bound. Takes Cellcept, off for past 3 months per pt. Confirm with neurologist - Cell-cept level - F/u w/ neurologist as outpt #WINTER - Cr 1.2 on admission. 0.6 on prior admission in 2012 - Trend Cr, daily BMPs - Urine lytes - Avoid nephrotoxic agents - Hold home lisinopril - Gentle IVFs #Chronic Diarrhea/abdominal pain - Prior C. Diff infections x2 this year - C diff Ag - Stool cultures - Monitor for diarrhea - f/u lipase - abdominal CT wo contrast #Hypothyroidism - check TSH - Continue home synthroid #Prolonged QTC - QTc 502 on 05/19, K/mag repleted - Avoid QT prolonging meds - Replete K/Mg as needed - Avoid levaquin for UTI tx PPX: Heparin Subq FEN: NS 75cc/hr Daily BMPs, Trend K, Mg Diabetic Diet Dispo: Obs pt Plan discussed with attending, Dr. Katarina Limon, PGY1 Visit type - Emergency Visit Emergency Visit: Yes ED Registration Date: 05/19/17 Care time: The patient presented to the Emergency Department on the above date and was hospitalized for further evaluation of their emergent condition. - New Patient This patient is new to me today: Yes Date on this admission: 05/20/17 - Critical Care Critical Care patient: No
[2017-05-20 03:01] VITALS: BMI 33.9
[2017-05-20] MEDS ORDERED: LEVOTHYROXINE NA 25 MCG TABLET (FP) ONE (05:35)
[2017-05-20] MEDS ORDERED: LEVOTHYROXINE NA 112 MCG TABLET (FP) ONE (05:35)
[2017-05-20] MEDS ORDERED: INSULIN (NOVOLOG) ASPART 100 UNITS/ML 10ML VIAL ONE ×3 (05:35→20:59)
[2017-05-20] MEDS: HEPARIN NA (PORCINE) 5,000 UNITS/ML 1ML VIAL SQ SCH ×3 (06:04→21:06)
[2017-05-20] MEDS: GABAPENTIN 300 MG CAPSULE (FP) PO SCH ×4 (06:05→23:24)
[2017-05-20] MEDS: LEVOTHYROXINE 112 MCG, LEVOTHYROXINE 25 MCG PO SCH (06:05)
[2017-05-20] MEDS: INSULIN SLIDING SCALE (NOVOLOG) 1 VIAL SQ SCH ×4 (06:07→21:06)
[2017-05-20] MEDS ORDERED: INSULIN SLIDING SCALE (NOVOLOG) 1 VIAL SQ SCH (07:00)
[2017-05-20 07:58] LABS: BASO % 0.8 % (0-2.0); EOS % 2.3 % (0-4.5); MCH 31.4 pg (25.7-33.7); MCHC 33.4 g/dl (32.0-36.0); MEAN CELL VOLUME 94.1 fl (80-96); MEAN PLT VOLUME 9.1 fl (7.5-11.1); NEUT % 55.6 % (42.8-82.8); PLATELET COUNT 120 K/MM3 (134-434); RDW 13.3 % (11.6-15.6); WHITE BLOOD COUNT 4.6 K/mm3 (4.0-10.0)
[2017-05-20] MEDS ORDERED: sitaGLIPtin PHOSPHATE 50 MG TABLET PO ONE (08:05)
[2017-05-20 08:33] LABS: ALBUMIN 2.6 g/dl (3.4-5.0); ALK PHOS 95 U/L (45-117); ANION GAP 13 (8-16); BILIRUBIN,TOTAL 1.6 mg/dL (0.2-1.0); CALCIUM 7.7 mg/dL (8.5-10.1); CO2 24 mmol/L (21-32); CREATININE 1.1 mg/dL (0.55-1.02); MAGNESIUM 2.1 mg/dL (1.8-2.4); PHOSPHOROUS 2.4 mg/dL (2.5-4.9); SGOT/AST 16 U/L (15-37); SGPT/ALT 19 U/L (12-78); THYROID STIMULATING HORMONE 7.12 uIU/ml (0.358-3.74); TOT PROT 5.8 g/dl (6.4-8.2)
[2017-05-20 08:51] LABS: GLUCOSE,RANDOM 320 mg/dL (74-106)
[2017-05-20] MEDS ORDERED: PT OWN MED DRAWER 7, Y5N ONE ×2 (09:25→17:19)
[2017-05-20] MEDS: MAGNESIUM OXIDE 400 MG TABLET (FP) PO SCH ×2 (09:27→21:05)
[2017-05-20] MEDS: POTASSIUM CHLORIDE TABS 20 MEQ TABLET.ER (FP) PO SCH (09:27)
[2017-05-20] MEDS: METOPROLOL SUCCINATE 50 MG TAB.SR.24H (FP) PO SCH (09:27)
[2017-05-20] MEDS: LIDOCAINE 5% TOPICAL PATCH TP SCH (09:27)
[2017-05-20] MEDS: FOLIC ACID 1 MG TABLET (FP) PO SCH (09:27)
[2017-05-20] MEDS: CEFTRIAXONE 1 G/50 ML PREMIX 50 ML IVPB SCH (09:27)
[2017-05-20] MEDS: CHOLECALCIFEROL (VITAMIN D3) 1,000 UNIT TABLET (FP) PO SCH (09:27)
[2017-05-20] MEDS ORDERED: LIDOCAINE 5% TOPICAL PATCH TP SCH (10:00)
[2017-05-20] MEDS ORDERED: LEVOTHYROXINE NA 125 MCG TABLET (FP) PO SCH (10:00)
--- NOTE | 2017-05-20 11:20 | EKG ---
Test Reason : Blood Pressure : / mmHG Vent. Rate : 087 BPM Atrial Rate : 087 BPM P-R Int : 158 ms QRS Dur : 078 ms QT Int : 418 ms P-R-T Axes : 080 -26 101 degrees QTc Int : 502 ms POOR DATA QUALITY, INTERPRETATION MAY BE ADVERSELY AFFECTED SINUS RHYTHM WITH PREMATURE SUPRAVENTRICULAR COMPLEXES LOW VOLTAGE QRS INFERIOR INFARCT , AGE UNDETERMINED CANNOT RULE OUT ANTERIOR INFARCT (CITED ON OR BEFORE 18-FEB-2013) ABNORMAL ECG WHEN COMPARED WITH ECG OF 18-FEB-2013 21:10, PREMATURE SUPRAVENTRICULAR COMPLEXES ARE NOW PRESENT NONSPECIFIC T WAVE ABNORMALITY NOW EVIDENT IN LATERAL LEADS Confirmed by REINALDO DRUMMOND, ZI ([id number]) on 05/20/2017 11:20:12 AM Referred By: Confirmed By:ZI NAJERA MD
[2017-05-20] MEDS ORDERED: LOPERAMIDE HCL 2 MG CAPSULE PO ONE (13:40)
[2017-05-20] MEDS ORDERED: POTASSIUM PHOSPHATE 15 MM in SODIUM CHLORIDE 250 ML IVPB ONE (16:06)
[2017-05-20] MEDS ORDERED: INSULIN DETEMIR 100 UNITS/ML MDV SQ ONE ×2 (19:04→22:00)
--- NOTE | 2017-05-20 19:04 | PN ---
Teaching Attending Note Name of Resident: Alyx Solis ATTENDING PHYSICIAN STATEMENT Time of evaluation: 12:30 PM I saw and evaluated the patient. I reviewed the resident's note and discussed the case with the resident. I agree with the resident's findings and plan as documented. SUBJECTIVE: Patient seen and examined. feels better, less fatigues, vague lower abdominal pain which has improved. No flank pain, fevers or chills. resolved nausea/ vomiting, eating better. OBJECTIVE: Vital Signs Period Temp Pulse Resp BP Sys/Muñoz Pulse Ox Last 24 Hr 97.9 F-100.6 F 70-84 18-20 104-156/67-80 91-96 Intake & Output 05/17/17 05/18/17 05/19/17 05/20/17 23:59 23:59 23:59 23:59 Intake Total 1500 Balance 1500 Weight 215 lb 220 lb General: sitting wheelchair in no acute distress CVS:s1S2 regular Chest: CTAB, no rales or wheezing abdomen: soft,mild lower abdominal tenderness, no voluntary or involuntary guarding or rigidity, positive bowel sounds, no CVA tenderness Home Medication List Medication Instructions Recorded Confirmed Type Ergocalciferol (Vitamin D2) 2,000 unit PO DAILY 03/14/13 05/19/17 History [Vitamin D2] Insulin (Levemir) [Levemir Flexpen 54 units SQ DAILY@0700 05/19/17 05/19/17 History -] Levothyroxine [Synthroid -] 137 mcg PO DAILY 05/19/17 05/19/17 History Lisinopril 20 mg PO DAILY 05/19/17 05/19/17 History Multivitamin [One Daily] 1 each PO DAILY 05/19/17 05/19/17 History Mycophenolate Mofetil 1,000 mg PO BID 05/19/17 05/19/17 History Potassium Chloride 20 meq PO BID 05/19/17 05/19/17 History Active Medications Generic Name Dose Route Start Last Admin Trade Name Freq PRN Reason Stop Dose Admin Cholecalciferol 2,000 unit 05/20/17 10:00 05/20/17 09:27 Vitamin D3 - PO 2,000 unit DAILY JASMYN Administration Folic Acid 1 mg 05/20/17 10:00 05/20/17 09:27 Folic Acid - PO 1 mg DAILY JASMYN Administration Gabapentin 600 mg 05/20/17 06:00 05/20/17 17:22 Neurontin - PO 600 mg Q6HPO JASMYN Administration Heparin Sodium (Porcine) 5,000 unit 05/20/17 06:00 05/20/17 13:27 Heparin - SQ 5,000 unit TID JASMYN Administration CEFTRIAXONE 1 G/50 ML PREMIX 50 mls @ 100 mls/hr 05/20/17 10:00 05/20/17 09: 27 Ceftriaxone 1 Gm-D5w Bag IVPB 100 mls/hr DAILY JASMYN Administration Sodium Chloride 1,000 mls @ 50 mls/hr 05/20/17 02:15 05/20/17 02:13 Normal Saline - IV 05/21/17 02:02 50 mls/hr ASDIR JASMYN Administration Potassium Phosphate 15 mm/ 255 mls @ 62.5 mls/hr 05/20/17 16:06 05/20/17 17: 22 Sodium Chloride IVPB 05/20/17 20:10 62.5 mls/hr ONCE ONE Administration Insulin Aspart 1 vial 05/20/17 07:00 05/20/17 16:30 Novolog Vial Sliding Scale - SQ 6 unit ACHS JASMYN Administration Protocol Levothyroxine Sodium 112 mcg/ 137 mcg 05/20/17 07:00 05/20/17 06:05 Levothyroxine Sodium 25 mcg PO 137 mcg DAILY@0700 JASMYN Administration Lidocaine 1 patch 05/20/17 10:00 05/20/17 09:27 Lidoderm Patch - TP 1 patch DAILY JASMYN Administration Loperamide HCl 1 mg 05/20/17 22:00 Imodium - PO Q8H PRN DIARRHEA Magnesium Oxide 400 mg 05/20/17 10:00 05/20/17 09:27 Mag-Ox - PO 400 mg BID JASMYN Administration Metoprolol Succinate 50 mg 05/20/17 10:00 05/20/17 09:27 Toprol Xl - PO 50 mg DAILY JASMYN Administration Miscellaneous 1 each 05/20/17 22:00 Lidoderm Patch Removal MC DAILY@2200 JASMYN Non-Formulary Medication 1 tab 05/20/17 10:00 Methyl-B12/L-Mefolate/B6 Phos [Metanx Tablet] PO BID JASMYN Potassium Chloride 20 meq 05/20/17 10:00 05/20/17 09:27 K-Dur - PO 20 meq BID JASMYN Administration Sitagliptin Phosphate 50 mg 05/21/17 07:00 Januvia - PO DAILY@0700 [facility] Laboratory Results - last 24 hr 05/19/17 05/19/17 05/19/17 17:00 17:00 18:24 WBC RBC Hgb Hct MCV MCH MCHC RDW Plt Count MPV Neutrophils % Lymphocytes % Monocytes % Eosinophils % Basophils % Sodium 136 Potassium 3.1 L D Chloride 94 L D Carbon Dioxide 27 Anion Gap 15 BUN 12 Creatinine 1.2 H D Creat Clearance w eGFR 46.14 POC Glucometer [phone] Random Glucose 278 H D Lactic Acid 2.8 H* Calcium 8.8 Phosphorus Magnesium 1.3 L Total Bilirubin 1.8 H D AST 29 D ALT 23 D Alkaline Phosphatase 116 D Total Protein 6.9 D Albumin 3.1 L D Lipase TSH Urine Color Urine Appearance Urine pH Ur Specific [place] Urine Protein Urine Glucose (UA) Urine Ketones Urine Blood Urine Nitrite Urine Bilirubin Urine Urobilinogen Ur Leukocyte Esterase Urine WBC (Auto) Urine RBC (Auto) Ur Epithelial Cells Urine Bacteria Urine Mucus Ur Random Sodium Urine Creatinine Acetone, Qual Positive small 1+ H 05/19/17 05/20/17 05/20/17 19:50 02:30 02:30 WBC RBC Hgb Hct MCV MCH MCHC RDW Plt Count MPV Neutrophils % Lymphocytes % Monocytes % Eosinophils % Basophils % Sodium Potassium Chloride Carbon Dioxide Anion Gap BUN Creatinine Creat Clearance w eGFR POC Glucometer Random Glucose Lactic Acid 1.9 Calcium Phosphorus Magnesium Total Bilirubin AST ALT Alkaline Phosphatase Total Protein Albumin Lipase TSH Urine Color [place] Urine Appearance Cloudy Urine pH 6.0 Ur Specific [place] 1.016 Urine Protein 1+ H Urine Glucose (UA) 3+ H Urine Ketones 1+ H Urine Blood 1+ H Urine Nitrite Positive Urine Bilirubin Negative Urine Urobilinogen Negative Ur Leukocyte Esterase 1+ H Urine WBC (Auto) 1738 Urine RBC (Auto) 13 Ur Epithelial Cells Moderate Urine Bacteria Rare Urine Mucus Rare Ur Random Sodium 42 Urine Creatinine 137.0 Acetone, Qual 05/20/17 05/20/17 05/20/17 06:00 06:00 06:03 WBC 4.6 D RBC 3.96 Hgb 12.4 D Hct 37.2 MCV 94.1 MCH 31.4 MCHC 33.4 RDW 13.3 Plt Count 120 L D MPV 9.1 Neutrophils % 55.6 D Lymphocytes % 35.6 D Monocytes % 5.7 Eosinophils % 2.3 D Basophils % 0.8 Sodium 139 Potassium 3.2 L Chloride 102 Carbon Dioxide 24 Anion Gap 13 BUN 12 Creatinine 1.1 H Creat Clearance w eGFR 51.02 POC Glucometer 324 Random Glucose 320 H* Lactic Acid Calcium 7.7 L Phosphorus 2.4 L D Magnesium 2.1 D Total Bilirubin 1.6 H AST 16 D ALT 19 Alkaline Phosphatase 95 Total Protein 5.8 L Albumin 2.6 L Lipase 69 L TSH 7.12 H Urine Color Urine Appearance Urine pH Ur Specific [place] Urine Protein Urine Glucose (UA) Urine Ketones Urine Blood Urine Nitrite Urine Bilirubin Urine Urobilinogen Ur Leukocyte Esterase Urine WBC (Auto) Urine RBC (Auto) Ur Epithelial Cells Urine Bacteria Urine Mucus Ur Random Sodium Urine Creatinine Acetone, Qual 05/20/17 05/20/17 11:28 16:29 WBC RBC Hgb Hct MCV MCH MCHC RDW Plt Count MPV Neutrophils % Lymphocytes % Monocytes % Eosinophils % Basophils % Sodium Potassium Chloride Carbon Dioxide Anion Gap BUN Creatinine Creat Clearance w eGFR POC Glucometer 318 282 Random Glucose Lactic Acid Calcium Phosphorus Magnesium Total Bilirubin AST ALT Alkaline Phosphatase Total Protein Albumin Lipase TSH Urine Color Urine Appearance Urine pH Ur Specific [place] Urine Protein Urine Glucose (UA) Urine Ketones Urine Blood Urine Nitrite Urine Bilirubin Urine Urobilinogen Ur Leukocyte Esterase Urine WBC (Auto) Urine RBC (Auto) Ur Epithelial Cells Urine Bacteria Urine Mucus Ur Random Sodium Urine Creatinine Acetone, Qual Microbiology 05/19/17 16:38 Blood - Peripheral Venous Blood Culture - Preliminary NO GROWTH OBTAINED AFTER 24 HOURS, INCUBATION TO CONTINUE FOR 4 DAYS. 05/19/17 16:59 Blood - Peripheral Venous Blood Culture - Preliminary NO GROWTH OBTAINED AFTER 24 HOURS, INCUBATION TO CONTINUE FOR 4 DAYS. 05/19/17 17:00 Nasopharyngeal Swab Influenza Types A,B Antigen (MAYI) - Final 05/19/17 17:00 Nasopharyngeal Swab - Final renal ultrasound noted ASSESSMENT AND PLAN: 56 yof with Polycystic kidney disease, polymylinating neuropathy, on cellcept, frequent UTI/Pyelonephritis admitted with sepsis from UTI/?Pyelonephritis, weakness, mild Winter -Sepsis due to UTI/?pyelonephritis -Mild WINTER -Weakness -H/o polycystic kidney disease -Polymyelinating neuropathy on cellcept Plan: Ceftriaxone day 2, clinically improved, Follow up urine cultures. Check CT A/P. Urology input given frequent episodes and patient unable to follow with urology outpatient. Reports is being planned for cystoscopy but ends up with UTIs and in the hospital. Cellcept on hold for now. IVF. REsume levemir at 20 units daily, give 10 units tonight. ISS, diabetic diet. DVTPPX dispo in 2-3 days if improves and no new concerns. Plan discussed with patient in detail, all questions answered.
--- NOTE | 2017-05-20 19:46 | PN ---
Physical Exam: SUBJECTIVE: Patient seen and examined. Pt denies chest pain, sob. Pt c/o abdominal pain and nausea. No events overnight. OBJECTIVE: Vital Signs Period Temp Pulse Resp BP Sys/Muñoz Pulse Ox Last 24 Hr 97.9 F-100.6 F 70-84 18-20 104-156/67-80 91-96 GENERAL: The patient is awake, alert, and fully oriented, in no acute distress. LUNGS: Breath sounds equal, clear to auscultation bilaterally, no wheezes, no crackles, no accessory muscle use. HEART: Regular rate and rhythm, S1, S2 without murmur, rub or gallop. ABDOMEN: Soft, mild diffuse tenderness to palpation, nondistended, normoactive bowel sounds, no guarding. EXTREMITIES: Warm, well-perfused. 1+ pitting edema to snehal LE. PSYCH: Normal mood, normal affect. SKIN: Warm, dry, normal turgor, no rashes or lesions noted Laboratory Results - last 24 hr 05/19/17 05/19/17 05/19/17 17:00 17:00 18:24 WBC RBC Hgb Hct MCV MCH MCHC RDW Plt Count MPV Neutrophils % Lymphocytes % Monocytes % Eosinophils % Basophils % Sodium Potassium Chloride Carbon Dioxide Anion Gap BUN Creatinine Creat Clearance w eGFR POC Glucometer [phone] Random Glucose Lactic Acid 2.8 H* Calcium Phosphorus Magnesium Total Bilirubin AST ALT Alkaline Phosphatase Total Protein Albumin Lipase TSH Urine Color Urine Appearance Urine pH Ur Specific [place] Urine Protein Urine Glucose (UA) Urine Ketones Urine Blood Urine Nitrite Urine Bilirubin Urine Urobilinogen Ur Leukocyte Esterase Urine WBC (Auto) Urine RBC (Auto) Ur Epithelial Cells Urine Bacteria Urine Mucus Ur Random Sodium Urine Creatinine Acetone, Qual Positive small 1+ H 05/19/17 05/20/17 05/20/17 19:50 02:30 02:30 WBC RBC Hgb Hct MCV MCH MCHC RDW Plt Count MPV Neutrophils % Lymphocytes % Monocytes % Eosinophils % Basophils % Sodium Potassium Chloride Carbon Dioxide Anion Gap BUN Creatinine Creat Clearance w eGFR POC Glucometer Random Glucose Lactic Acid 1.9 Calcium Phosphorus Magnesium Total Bilirubin AST ALT Alkaline Phosphatase Total Protein Albumin Lipase TSH Urine Color [place] Urine Appearance Cloudy Urine pH 6.0 Ur Specific [place] 1.016 Urine Protein 1+ H Urine Glucose (UA) 3+ H Urine Ketones 1+ H Urine Blood 1+ H Urine Nitrite Positive Urine Bilirubin Negative Urine Urobilinogen Negative Ur Leukocyte Esterase 1+ H Urine WBC (Auto) 1738 Urine RBC (Auto) 13 Ur Epithelial Cells Moderate Urine Bacteria Rare Urine Mucus Rare Ur Random Sodium 42 Urine Creatinine 137.0 Acetone, Qual 05/20/17 05/20/17 05/20/17 06:00 06:00 06:03 WBC 4.6 D RBC 3.96 Hgb 12.4 D Hct 37.2 MCV 94.1 MCH 31.4 MCHC 33.4 RDW 13.3 Plt Count 120 L D MPV 9.1 Neutrophils % 55.6 D Lymphocytes % 35.6 D Monocytes % 5.7 Eosinophils % 2.3 D Basophils % 0.8 Sodium 139 Potassium 3.2 L Chloride 102 Carbon Dioxide 24 Anion Gap 13 BUN 12 Creatinine 1.1 H Creat Clearance w eGFR 51.02 POC Glucometer 324 Random Glucose 320 H* Lactic Acid Calcium 7.7 L Phosphorus 2.4 L D Magnesium 2.1 D Total Bilirubin 1.6 H AST 16 D ALT 19 Alkaline Phosphatase 95 Total Protein 5.8 L Albumin 2.6 L Lipase 69 L TSH 7.12 H Urine Color Urine Appearance Urine pH Ur Specific [place] Urine Protein Urine Glucose (UA) Urine Ketones Urine Blood Urine Nitrite Urine Bilirubin Urine Urobilinogen Ur Leukocyte Esterase Urine WBC (Auto) Urine RBC (Auto) Ur Epithelial Cells Urine Bacteria Urine Mucus Ur Random Sodium Urine Creatinine Acetone, Qual 05/20/17 05/20/17 11:28 16:29 WBC RBC Hgb Hct MCV MCH MCHC RDW Plt Count MPV Neutrophils % Lymphocytes % Monocytes % Eosinophils % Basophils % Sodium Potassium Chloride Carbon Dioxide Anion Gap BUN Creatinine Creat Clearance w eGFR POC Glucometer 318 282 Random Glucose Lactic Acid Calcium Phosphorus Magnesium Total Bilirubin AST ALT Alkaline Phosphatase Total Protein Albumin Lipase TSH Urine Color Urine Appearance Urine pH Ur Specific [place] Urine Protein Urine Glucose (UA) Urine Ketones Urine Blood Urine Nitrite Urine Bilirubin Urine Urobilinogen Ur Leukocyte Esterase Urine WBC (Auto) Urine RBC (Auto) Ur Epithelial Cells Urine Bacteria Urine Mucus Ur Random Sodium Urine Creatinine Acetone, Qual Active Medications Generic Name Dose Route Start Last Admin Trade Name Freq PRN Reason Stop Dose Admin Cholecalciferol 2,000 unit 05/20/17 10:00 05/20/17 09:27 Vitamin D3 - PO 2,000 unit DAILY JASMYN Administration Folic Acid 1 mg 05/20/17 10:00 05/20/17 09:27 Folic Acid - PO 1 mg DAILY JASMYN Administration Gabapentin 600 mg 05/20/17 06:00 05/20/17 17:22 Neurontin - PO 600 mg Q6HPO JASMYN Administration Heparin Sodium (Porcine) 5,000 unit 05/20/17 06:00 05/20/17 13:27 Heparin - SQ 5,000 unit TID JASMYN Administration CEFTRIAXONE 1 G/50 ML PREMIX 50 mls @ 100 mls/hr 05/20/17 10:00 05/20/17 09: 27 Ceftriaxone 1 Gm-D5w Bag IVPB 100 mls/hr DAILY JASMYN Administration Sodium Chloride 1,000 mls @ 50 mls/hr 05/20/17 02:15 05/20/17 02:13 Normal Saline - IV 05/21/17 02:02 50 mls/hr ASDIR JASMYN Administration Potassium Phosphate 15 mm/ 255 mls @ 62.5 mls/hr 05/20/17 16:06 05/20/17 17: 22 Sodium Chloride IVPB 05/20/17 20:10 62.5 mls/hr ONCE ONE Administration Insulin Aspart 1 vial 05/20/17 07:00 05/20/17 16:30 Novolog Vial Sliding Scale - SQ 6 unit ACHS JASMYN Administration Protocol Insulin Detemir 10 units 05/20/17 19:04 Levemir Vial SQ 05/20/17 19:05 ONCE ONE Insulin Detemir 20 units 05/21/17 10:00 Levemir Vial SQ DAILY JASMYN Levothyroxine Sodium 112 mcg/ 137 mcg 05/20/17 07:00 05/20/17 06:05 Levothyroxine Sodium 25 mcg PO 137 mcg DAILY@0700 JASMYN Administration Lidocaine 1 patch 05/20/17 10:00 05/20/17 09:27 Lidoderm Patch - TP 1 patch DAILY JASMYN Administration Loperamide HCl 1 mg 05/20/17 22:00 Imodium - PO Q8H PRN DIARRHEA Magnesium Oxide 400 mg 05/20/17 10:00 05/20/17 09:27 Mag-Ox - PO 400 mg BID JASMYN Administration Metoprolol Succinate 50 mg 05/20/17 10:00 05/20/17 09:27 Toprol Xl - PO 50 mg DAILY JASMYN Administration Miscellaneous 1 each 05/20/17 22:00 Lidoderm Patch Removal MC DAILY@2200 JASMYN Non-Formulary Medication 1 tab 12/20/17 10:00 Methyl-B12/L-Mefolate/B6 Phos [Metanx Tablet] PO BID JASMYN Potassium Chloride 20 meq 05/20/17 10:00 05/20/17 09:27 K-Dur - PO 20 meq BID JASMYN Administration IMAGIN05/19/17 CXR -> no acute pathology. Linear atelectasis vs scarring noted in the Left lung base. 05/20/17 Renal US -> morphologically normal kidneys without evidence of hydronephrosis or acute pathology. ASSESSMENT/PLAN: 56yo F with PMH of chronic UTI's, IDDM, Chronic Inflammatory Demyelinating Polyneuropathy (takes Cellcept, although off x 3 mo), presented with progressive fatigue/malaise and abdominal pain x 3-4 weeks, admitted for sepsis 2/2 UTI. # sepsis 2/2 UTI - Ceftriaxone IV Day 1 - IVFs - f/u cultures - Urology Consult - f/u Ab/Pel CT - immunosuppressed 2/2 hx of taking Cellcept for CIPD # dm - Levemir AM - BGMs - Novolog SSI - hold Janumet # WINTER - slightly improved today - continue to monitor with hydration - hold home med of GLORIA # diarrhea - f/u cdiff - continue Imodium # hypothyoidism - continue Synthroid - elevated TSH noted, f/u free T3 and free T4 # electrolyte abnormalities - hypophosphatemia and hypokalemia repleted with KPhos IVPB 15mm # FEN - Fluids: NS @ 50 ml/hr - Electrolytes: continue to monitor - Nutrition: diabetic diet # Prophylaxis - DVT ppx with Heparin TID Visit type - Emergency Visit Emergency Visit: Yes ED Registration Date: 05/19/17 Care time: The patient presented to the Emergency Department on the above date and was hospitalized for further evaluation of their emergent condition. - New Patient This patient is new to me today: Yes Date on this admission: 05/20/17 - Critical Care Critical Care patient: No
[2017-05-20] MEDS: LIDOCAINE PATCH REMOVAL MC SCH (21:07)
[2017-05-20] MEDS ORDERED: LOPERAMIDE HCL 2 MG CAPSULE PO PRN (22:00)
[2017-05-20] MEDS: LOPERAMIDE HCL 1 MG/5 ML UNIT DOSE CUP PO PRN (23:24)
[2017-05-21] MEDS ORDERED: LEVOTHYROXINE NA 25 MCG TABLET (FP) ONE ×2 (05:56→06:37)
[2017-05-21] MEDS ORDERED: LEVOTHYROXINE NA 112 MCG TABLET (FP) ONE (05:56)
[2017-05-21] MEDS: HEPARIN NA (PORCINE) 5,000 UNITS/ML 1ML VIAL SQ SCH ×3 (06:45→21:28)
[2017-05-21] MEDS: LEVOTHYROXINE 112 MCG, LEVOTHYROXINE 25 MCG PO SCH (06:45)
[2017-05-21] MEDS: GABAPENTIN 300 MG CAPSULE (FP) PO SCH ×4 (06:46→23:51)
[2017-05-21] MEDS: INSULIN SLIDING SCALE (NOVOLOG) 1 VIAL SQ SCH ×4 (06:47→21:30)
[2017-05-21] MEDS: LOPERAMIDE HCL 1 MG/5 ML UNIT DOSE CUP PO PRN (06:52)
[2017-05-21] MEDS ORDERED: sitaGLIPtin PHOSPHATE 50 MG TABLET PO SCH (07:00)
[2017-05-21] MEDS ORDERED: INSULIN DETEMIR 100 UNITS/ML MDV SQ SCH (07:00)
[2017-05-21] MEDS ORDERED: INSULIN (NOVOLOG) ASPART 100 UNITS/ML 10ML VIAL ONE ×3 (07:19→20:46)
[2017-05-21] MEDS ORDERED: PT OWN MED DRAWER 7, Y5N ONE (07:19)
[2017-05-21 08:02] LABS: MCH 31.1 pg (25.7-33.7); MCHC 33.2 g/dl (32.0-36.0); MEAN CELL VOLUME 93.8 fl (80-96); MEAN PLT VOLUME 9.6 fl (7.5-11.1); PLATELET COUNT 106 K/MM3 (134-434); RDW 13.4 % (11.6-15.6); WHITE BLOOD COUNT 4.3 K/mm3 (4.0-10.0)
[2017-05-21 08:31] LABS: ANION GAP 11 (8-16); CALCIUM 7.4 mg/dL (8.5-10.1); CO2 24 mmol/L (21-32); GLUCOSE,RANDOM 296 mg/dL (74-106); MAGNESIUM 1.9 mg/dL (1.8-2.4); PHOSPHOROUS 2.6 mg/dL (2.5-4.9)
[2017-05-21 08:33] LABS: FREE T4 1.13 ng/dl (0.76-1.46)
[2017-05-21] MEDS ORDERED: POTASSIUM CHLORIDE TABS 20 MEQ TABLET.ER (FP) PO ONE (10:05)
[2017-05-21] MEDS ORDERED: sitaGLIPtin PHOSPHATE 50 MG TABLET PO ONE ×3 (10:12→10:35)
[2017-05-21] MEDS ORDERED: SODIUM CHLORIDE 1,000 ML IV SCH (10:30)
[2017-05-21] MEDS: CEFTRIAXONE 1 G/50 ML PREMIX 50 ML IVPB SCH (11:11)
[2017-05-21] MEDS: MAGNESIUM OXIDE 400 MG TABLET (FP) PO SCH ×2 (11:11→21:29)
[2017-05-21] MEDS: FOLIC ACID 1 MG TABLET (FP) PO SCH (11:11)
[2017-05-21] MEDS: METOPROLOL SUCCINATE 50 MG TAB.SR.24H (FP) PO SCH (11:12)
[2017-05-21] MEDS: CHOLECALCIFEROL (VITAMIN D3) 1,000 UNIT TABLET (FP) PO SCH (11:12)
[2017-05-21] MEDS: LIDOCAINE 5% TOPICAL PATCH TP SCH (11:13)
[2017-05-21] MEDS: POTASSIUM CHLORIDE TABS 20 MEQ TABLET.ER (FP) PO SCH ×2 (15:38→21:29)
--- NOTE | 2017-05-21 17:11 | PN ---
Teaching Attending Note Name of Resident: Alyx Solis ATTENDING PHYSICIAN STATEMENT Time of evaluation: 11:10 AM I saw and evaluated the patient. I reviewed the resident's note and discussed the case with the resident. I agree with the resident's findings and plan as documented. SUBJECTIVE: Patient seen and examined. Abdominal symptoms and weakness improved, no new concerns. OBJECTIVE: Vital Signs Period Temp Pulse Resp BP Sys/Muñoz Pulse Ox Last 24 Hr 98.1 F-98.5 F 65-70 18-20 96-116/52-70 96-96 Intake & Output 05/18/17 05/19/17 05/20/17 05/21/17 23:59 23:59 23:59 23:59 Intake Total 1860 1080 Balance 1860 1080 Weight 215 lb 220 lb General: lying in bed in no acute distress Abdomen: soft, no lower abdominal tenderness today, ND, positive bowel sounds, no CVA tenderness Home Medication List Medication Instructions Recorded Confirmed Type Ergocalciferol (Vitamin D2) 2,000 unit PO DAILY 03/14/13 05/19/17 History [Vitamin D2] Insulin (Levemir) [Levemir Flexpen 54 units SQ DAILY@0700 05/19/17 05/19/17 History -] Levothyroxine [Synthroid -] 137 mcg PO DAILY 05/19/17 05/19/17 History Lisinopril 20 mg PO DAILY 05/19/17 05/19/17 History Multivitamin [One Daily] 1 each PO DAILY 05/19/17 05/19/17 History Mycophenolate Mofetil 1,000 mg PO BID 05/19/17 05/19/17 History Potassium Chloride 20 meq PO BID 05/19/17 05/19/17 History Active Medications Generic Name Dose Route Start Last Admin Trade Name Freq PRN Reason Stop Dose Admin Cholecalciferol 2,000 unit 05/20/17 10:00 05/21/17 11:12 Vitamin D3 - PO 2,000 unit DAILY JASMYN Administration Folic Acid 1 mg 05/20/17 10:00 05/21/17 11:11 Folic Acid - PO 1 mg DAILY JASMYN Administration Gabapentin 600 mg 05/20/17 06:00 05/21/17 11:18 Neurontin - PO 600 mg Q6HPO JASMYN Administration Heparin Sodium (Porcine) 5,000 unit 05/20/17 06:00 05/21/17 15:38 Heparin - SQ Not Given TID [facility] CEFTRIAXONE 1 G/50 ML PREMIX 50 mls @ 100 mls/hr 05/20/17 10:00 05/21/17 11: 11 Ceftriaxone 1 Gm-D5w Bag IVPB 100 mls/hr DAILY JASMYN Administration Metronidazole 500 mg in 100 mls @ 100 mls/hr 05/21/17 18:00 Flagyl 500mg Premixed Ivpb - IVPB Q8H-IV JASMYN Sodium Chloride 1,000 mls @ 100 mls/hr 05/21/17 16:04 Normal Saline - IV ASDIR JASMYN Insulin Aspart 1 vial 05/20/17 07:00 05/21/17 11:28 Novolog Vial Sliding Scale - SQ 6 unit ACHS [facility] Administration Protocol Insulin Detemir 30 units 05/22/17 07:00 Levemir Vial SQ DAILY@0700 [facility] Levothyroxine Sodium 112 mcg/ 137 mcg 05/20/17 07:00 05/21/17 06:45 Levothyroxine Sodium 25 mcg PO 137 mcg DAILY@0700 [facility] Administration Lidocaine 1 patch 05/20/17 10:00 05/21/17 11:13 Lidoderm Patch - TP 1 patch DAILY JASMYN Administration Magnesium Oxide 400 mg 05/20/17 10:00 05/21/17 11:11 Mag-Ox - PO 400 mg BID JASMYN Administration Metoprolol Succinate 50 mg 05/20/17 10:00 05/21/17 11:12 Toprol Xl - PO 50 mg DAILY JASMYN Administration Miscellaneous 1 each 05/20/17 22:00 05/20/17 21:07 Lidoderm Patch Removal MC 1 each DAILY@2200 [facility] Administration Potassium Chloride 20 meq 05/20/17 10:00 05/21/17 15:38 K-Dur - PO Not Given BID JASMYN Sitagliptin Phosphate 50 mg 05/22/17 07:00 Januvia - PO DAILY@0700 [facility] Laboratory Results - last 24 hr 05/20/17 05/21/17 05/21/17 21:04 06:00 06:00 WBC 4.3 RBC 3.80 Hgb 11.8 Hct 35.6 MCV 93.8 MCH 31.1 MCHC 33.2 RDW 13.4 Plt Count 106 L MPV 9.6 Sodium 138 Potassium 3.4 L Chloride 103 Carbon Dioxide 24 Anion Gap 11 BUN 12 Creatinine 1.0 POC Glucometer 311 Random Glucose 296 H Calcium 7.4 L Phosphorus 2.6 Magnesium 1.9 Free T4 1.13 05/21/17 05/21/17 05/21/17 06:31 11:27 16:30 WBC RBC Hgb Hct MCV MCH MCHC RDW Plt Count MPV Sodium Potassium Chloride Carbon Dioxide Anion Gap BUN Creatinine POC Glucometer 295 284 309 Random Glucose Calcium Phosphorus Magnesium Free T4 Microbiology 05/20/17 17:30 Stool Clostridium difficile Antigen (MAYI) - Final 05/20/17 17:30 Stool Clostridium difficile Toxin Assay - Final 05/19/17 19:50 Urine - Urine Clean Catch Urine Culture - Preliminary Lactose Fermenting Neg Bacilli 05/19/17 16:38 Blood - Peripheral Venous Blood Culture - Preliminary NO GROWTH OBTAINED AFTER 24 HOURS, INCUBATION TO CONTINUE FOR 4 DAYS. 05/19/17 16:59 Blood - Peripheral Venous Blood Culture - Preliminary NO GROWTH OBTAINED AFTER 24 HOURS, INCUBATION TO CONTINUE FOR 4 DAYS. 05/19/17 17:00 Nasopharyngeal Swab Influenza Types A,B Antigen (MAYI) - Final 05/19/17 17:00 Nasopharyngeal Swab - Final ASSESSMENT AND PLAN: 56 yof with Polycystic kidney disease, polymylinating neuropathy, on cellcept, frequent UTI/Pyelonephritis admitted with sepsis from UTI/?Pyelonephritis, weakness, mild Winter -Sepsis due to complicated UTI -Acute C difficile associated diarrhea -Mild WINTER -IDDM -Weakness -H/o polycystic kidney disease -Polymyelinating neuropathy on cellcept Plan: Ceftriaxone day 3, clinically improved, urine cultures noted, follow up final results. ID input given recurrent UTIs with pyelonephritis for possible suppressive therapy. Patient reports being arranged for outpatient urology follow up with possible cystoscopy. Her underlying neurological disease could be contributory CT A/P neg for obstructive process. Start flagyl for CDAD. contact precautions, avoid lomotil. Cellcept on hold for now. IVF. Increase levemir to30 units daily. resume iVF. ISS, diabetic diet. DVTPPX Anticipate alteast 2 midnight stays given ongoing complicated UTI with need for IV antibiotics now with C difficile associated diarrhea with ongoing risk for infection. Admit to inpatient care. Plan discussed with patient and all questions answered.
[2017-05-21] MEDS: METRONIDAZOLE 500 MG PREMIXED 500 MG/100 ML MG IVPB SCH (17:20)
[2017-05-21] MEDS: SODIUM CHLORIDE 1,000 ML IV SCH ×2 (17:21→23:51)
--- NOTE | 2017-05-21 20:13 | PN ---
Physical Exam: SUBJECTIVE: Patient seen and examined. Pt denies chest pain, abdominal pain, headache, vomiting. Pt c/o diarrhea. No events overnight. OBJECTIVE: Vital Signs Period Temp Pulse Resp BP Sys/Muñoz Pulse Ox Last 24 Hr 98.1 F-98.5 F 65-69 20-20 96-114/52-70 96-96 GENERAL: The patient is awake, alert, and fully oriented, in no acute distress. LUNGS: Breath sounds equal, clear to auscultation bilaterally, no wheezes, no crackles, no accessory muscle use. HEART: Regular rate and rhythm, S1, S2 without murmur, rub or gallop. ABDOMEN: Soft, mild diffuse tenderness to palpation, nondistended, normoactive bowel sounds, no guarding. EXTREMITIES: Warm, well-perfused. 1+ pitting edema to snehal LE. PSYCH: Normal mood, normal affect. SKIN: Warm, dry, normal turgor, no rashes or lesions noted Laboratory Results - last 24 hr 05/20/17 05/21/17 05/21/17 21:04 06:00 06:00 WBC 4.3 RBC 3.80 Hgb 11.8 Hct 35.6 MCV 93.8 MCH 31.1 MCHC 33.2 RDW 13.4 Plt Count 106 L MPV 9.6 Sodium 138 Potassium 3.4 L Chloride 103 Carbon Dioxide 24 Anion Gap 11 BUN 12 Creatinine 1.0 POC Glucometer 311 Random Glucose 296 H Calcium 7.4 L Phosphorus 2.6 Magnesium 1.9 Free T4 1.13 05/21/17 05/21/17 05/21/17 06:31 11:27 16:30 WBC RBC Hgb Hct MCV MCH MCHC RDW Plt Count MPV Sodium Potassium Chloride Carbon Dioxide Anion Gap BUN Creatinine POC Glucometer 295 284 309 Random Glucose Calcium Phosphorus Magnesium Free T4 Active Medications Generic Name Dose Route Start Last Admin Trade Name Freq PRN Reason Stop Dose Admin Cholecalciferol 2,000 unit 05/20/17 10:00 05/21/17 11:12 Vitamin D3 - PO 2,000 unit DAILY JASMYN Administration Folic Acid 1 mg 05/20/17 10:00 05/21/17 11:11 Folic Acid - PO 1 mg DAILY JASMYN Administration Gabapentin 600 mg 05/20/17 06:00 05/21/17 17:20 Neurontin - PO 600 mg Q6HPO JASMYN Administration Heparin Sodium (Porcine) 5,000 unit 05/20/17 06:00 05/21/17 15:38 Heparin - SQ Not Given TID JASMYN CEFTRIAXONE 1 G/50 ML PREMIX 50 mls @ 100 mls/hr 05/20/17 10:00 05/21/17 11: 11 Ceftriaxone 1 Gm-D5w Bag IVPB 100 mls/hr DAILY JASMYN Administration Metronidazole 500 mg in 100 mls @ 100 mls/hr 05/21/17 18:00 05/21/17 17:20 Flagyl 500mg Premixed Ivpb - IVPB 100 mls/hr Q8H-IV JASMYN Administration Sodium Chloride 1,000 mls @ 100 mls/hr 05/21/17 16:04 05/21/17 17:21 Normal Saline - IV 100 mls/hr ASDIR JASMYN Administration Insulin Aspart 1 vial 05/20/17 07:00 05/21/17 17:20 Novolog Vial Sliding Scale - SQ 8 unit ACHS JASMYN Administration Protocol Insulin Detemir 30 units 05/22/17 07:00 Levemir Vial SQ DAILY@0700 [facility] Levothyroxine Sodium 112 mcg/ 137 mcg 05/20/17 07:00 05/21/17 06:45 Levothyroxine Sodium 25 mcg PO 137 mcg DAILY@0700 [facility] Administration Lidocaine 1 patch 05/20/17 10:00 05/21/17 11:13 Lidoderm Patch - TP 1 patch DAILY JASMYN Administration Magnesium Oxide 400 mg 05/20/17 10:00 05/21/17 11:11 Mag-Ox - PO 400 mg BID JASMYN Administration Metoprolol Succinate 50 mg 05/20/17 10:00 05/21/17 11:12 Toprol Xl - PO 50 mg DAILY JASMYN Administration Miscellaneous 1 each 05/20/17 22:00 05/20/17 21:07 Lidoderm Patch Removal MC 1 each DAILY@2200 [facility] Administration Potassium Chloride 20 meq 05/20/17 10:00 05/21/17 15:38 K-Dur - PO Not Given BID [facility] Sitagliptin Phosphate 50 mg 05/22/17 07:00 Januvia - PO DAILY@0700 [facility] IMAGIN05/20/17 Ab/Pel CT -> no hydronephrosis or urolithiasis. Numerous snehal renal cysts consistent with PKD. Small curvilinear density within Left renal cortex laterally probably representing cyst wall calcification. Interval resolution of concentric wall thickening in ascending and proximal transverse colon. Moderate to large umbilical hernia containing fat only -> increased in size since prior study. Hepatic cirrhosis. Splenomegaly. Varices. Moderate fat replacement of pancreatic head. 2cm duodenal diverticulum. Colonic diverticulosis. ASSESSMENT/PLAN: 56yo F with PMH of chronic UTI's, IDDM, Chronic Inflammatory Demyelinating Polyneuropathy (takes Cellcept, although off x 3 mo), presented with progressive fatigue/malaise and abdominal pain x 3-4 weeks, admitted for sepsis 2/2 UTI. # sepsis 2/2 UTI - IV Ceftriaxone Day 3 - c-diff (+) -> IV Flagyl Day 1 - ID Consult - IVFs - urine culture (+) for lactose fermenting negative bacilli - blood culture (-) x 48 hrs - immunosuppressed 2/2 hx of taking Cellcept for CIPD - hold for now - Pt reports having outpt Urology f/u for possible cystoscopy 2/2 recurrent UTIs/pyelonephritis. - CT A/P (-) for obstructive process # dm - Levemir increased to 30U AM - BGMs - Novolog SSI - hold Janumet - Januvia added # WINTER - resolved - hold home med of GLORIA until kidney function further stabilizes # hypothyoidism - continue Synthroid - elevated TSH noted, free T4 wnl # hypokalemia - repleted with Kdur 40meq # FEN - Fluids: NS @ 50 ml/hr - Electrolytes: continue to monitor - Nutrition: diabetic diet # Prophylaxis - DVT ppx with Heparin TID - deconditioning ppx with PT Visit type - Emergency Visit Emergency Visit: Yes ED Registration Date: 05/21/17 Care time: The patient presented to the Emergency Department on the above date and was hospitalized for further evaluation of their emergent condition. - New Patient This patient is new to me today: No - Critical Care Critical Care patient: No
[2017-05-21] MEDS: LIDOCAINE PATCH REMOVAL MC SCH (21:33)
[2017-05-21] MEDS ORDERED: traMADol HCL 50 MG TABLET PO ONE (22:21)
[2017-05-22] MEDS: METRONIDAZOLE 500 MG PREMIXED 500 MG/100 ML MG IVPB SCH ×2 (01:09→10:38)
[2017-05-22] MEDS ORDERED: LEVOTHYROXINE NA 112 MCG TABLET (FP) ONE (05:04)
[2017-05-22] MEDS ORDERED: LEVOTHYROXINE NA 25 MCG TABLET (FP) ONE (05:04)
[2017-05-22] MEDS: HEPARIN NA (PORCINE) 5,000 UNITS/ML 1ML VIAL SQ SCH ×3 (06:25→22:11)
[2017-05-22] MEDS: LEVOTHYROXINE 112 MCG, LEVOTHYROXINE 25 MCG PO SCH (06:26)
[2017-05-22] MEDS: sitaGLIPtin PHOSPHATE 50 MG TABLET PO SCH (06:26)
[2017-05-22] MEDS: GABAPENTIN 300 MG CAPSULE (FP) PO SCH ×3 (06:26→17:43)
[2017-05-22] MEDS: INSULIN SLIDING SCALE (NOVOLOG) 1 VIAL SQ SCH ×4 (06:28→22:11)
[2017-05-22] MEDS ORDERED: sitaGLIPtin PHOSPHATE 50 MG TABLET PO SCH (07:00)
[2017-05-22] MEDS ORDERED: INSULIN DETEMIR 100 UNITS/ML MDV SQ SCH ×2 (07:00→18:00)
[2017-05-22 08:01] LABS: MCH 31.4 pg (25.7-33.7); MCHC 33.5 g/dl (32.0-36.0); MEAN CELL VOLUME 93.7 fl (80-96); MEAN PLT VOLUME 9.9 fl (7.5-11.1); PLATELET COUNT 129 K/MM3 (134-434); RDW 13.5 % (11.6-15.6)
[2017-05-22 08:50] LABS: ANION GAP 11 (8-16); CALCIUM 7.5 mg/dL (8.5-10.1); CO2 22 mmol/L (21-32); GLUCOSE,RANDOM 235 mg/dL (74-106)
[2017-05-22] MEDS: CEFTRIAXONE 1 G/50 ML PREMIX 50 ML IVPB SCH (10:38)
[2017-05-22] MEDS: POTASSIUM CHLORIDE TABS 20 MEQ TABLET.ER (FP) PO SCH ×2 (10:40→22:09)
[2017-05-22] MEDS: FOLIC ACID 1 MG TABLET (FP) PO SCH (10:40)
[2017-05-22] MEDS: CHOLECALCIFEROL (VITAMIN D3) 1,000 UNIT TABLET (FP) PO SCH (10:40)
[2017-05-22] MEDS: MAGNESIUM OXIDE 400 MG TABLET (FP) PO SCH ×2 (10:40→22:09)
[2017-05-22] MEDS: LIDOCAINE 5% TOPICAL PATCH TP SCH (10:41)
[2017-05-22] MEDS: METOPROLOL SUCCINATE 50 MG TAB.SR.24H (FP) PO SCH (10:41)
--- NOTE | 2017-05-22 12:01 | PN ---
Progress Note (short form) - Note Progress Note: ID Consult dictated Recurrent UTI E coli C difficile colitis CIDP IDDM PKD Thrombocytopenia Continue ceftriaxone Flagyl 500mg po tid 10-14d Contact precautions
[2017-05-22] MEDS: SODIUM CHLORIDE 1,000 ML IV SCH (16:05)
[2017-05-22] MEDS: metroNIDAZOLE 250 MG TABLET PO SCH ×2 (16:05→22:07)
[2017-05-22] MEDS ORDERED: INSULIN DETEMIR 100 UNITS/ML MDV SQ ONE (17:59)
--- NOTE | 2017-05-22 18:06 | PN ---
Teaching Attending Note Name of Resident: Alyx Solis ATTENDING PHYSICIAN STATEMENT Time of evaluation: 12:10 PM I saw and evaluated the patient. I reviewed the resident's note and discussed the case with the resident. I agree with the resident's findings and plan as documented. SUBJECTIVE: Patient seen and examined. weakness, nausea and abdominal symptoms improved. Still with multiple episodes of loose watery stools. No fevers/chills noted. OBJECTIVE: Vital Signs Period Temp Pulse Resp BP Sys/Muñoz Pulse Ox Last 24 Hr 97.7 F-98.3 F 63-79 20-20 95-125/57-85 94-96 Intake & Output 05/19/17 05/20/17 05/21/17 05/22/17 23:59 23:59 23:59 23:59 Intake Total 1860 2112 1450 Balance 1860 2112 1450 Weight 215 lb 220 lb General: sitting in chair, in no acute distress Abdomen: soft, obese, NT throughout, no voluntary or involuntary guarding or rigidity, no CVA tenderness Home Medication List Medication Instructions Recorded Confirmed Type Ergocalciferol (Vitamin D2) 2,000 unit PO DAILY 03/14/13 05/19/17 History [Vitamin D2] Insulin (Levemir) [Levemir Flexpen 54 units SQ DAILY@0700 05/19/17 05/19/17 History -] Levothyroxine [Synthroid -] 137 mcg PO DAILY 05/19/17 05/19/17 History Lisinopril 20 mg PO DAILY 05/19/17 05/19/17 History Multivitamin [One Daily] 1 each PO DAILY 05/19/17 05/19/17 History Mycophenolate Mofetil 1,000 mg PO BID 05/19/17 05/19/17 History Potassium Chloride 20 meq PO BID 05/19/17 05/19/17 History Active Medications Generic Name Dose Route Start Last Admin Trade Name Freq PRN Reason Stop Dose Admin Cholecalciferol 2,000 unit 05/20/17 10:00 05/22/17 10:40 Vitamin D3 - PO 2,000 unit DAILY JASMYN Administration Folic Acid 1 mg 05/20/17 10:00 05/22/17 10:40 Folic Acid - PO 1 mg DAILY JASMYN Administration Gabapentin 600 mg 05/20/17 06:00 05/22/17 17:43 Neurontin - PO 600 mg Q6HPO JASMYN Administration Heparin Sodium (Porcine) 5,000 unit 05/20/17 06:00 05/22/17 16:05 Heparin - SQ 5,000 unit TID JASMYN Administration CEFTRIAXONE 1 G/50 ML PREMIX 50 mls @ 100 mls/hr 05/20/17 10:00 05/22/17 10: 38 Ceftriaxone 1 Gm-D5w Bag IVPB 100 mls/hr DAILY JASMYN Administration Sodium Chloride 1,000 mls @ 100 mls/hr 05/21/17 16:04 05/22/17 16:05 Normal Saline - IV 100 mls/hr ASDIR JASMYN Administration Insulin Aspart 1 vial 05/20/17 07:00 05/22/17 17:43 Novolog Vial Sliding Scale - SQ 2 unit ACHS JASMYN Administration Protocol Insulin Detemir 40 units 05/22/17 18:00 Levemir Vial SQ DAILY@0700 JASMYN Levothyroxine Sodium 112 mcg/ 137 mcg 05/20/17 07:00 05/22/17 06:26 Levothyroxine Sodium 25 mcg PO 137 mcg DAILY@0700 JASMYN Administration Lidocaine 1 patch 05/20/17 10:00 05/22/17 10:41 Lidoderm Patch - TP 1 patch DAILY JASMYN Administration Magnesium Oxide 400 mg 05/20/17 10:00 05/22/17 10:40 Mag-Ox - PO 400 mg BID JASMYN Administration Metoprolol Succinate 50 mg 05/20/17 10:00 05/22/17 10:41 Toprol Xl - PO 50 mg DAILY JASMYN Administration Metronidazole 500 mg 05/22/17 14:00 05/22/17 16:05 Flagyl - PO Not Given TID JASMYN Miscellaneous 1 each 05/20/17 22:00 05/21/17 21:33 Lidoderm Patch Removal MC 1 each DAILY@2200 JASMYN Administration Potassium Chloride 20 meq 05/20/17 10:00 05/22/17 10:40 K-Dur - PO 20 meq BID JASMYN Administration Sitagliptin Phosphate 50 mg 05/22/17 07:00 05/22/17 06:26 Januvia - PO 50 mg DAILY@0700 JASMYN Administration Laboratory Results - last 24 hr 05/21/17 05/21/17 05/22/17 06:00 20:58 05:59 WBC RBC Hgb Hct MCV MCH MCHC RDW Plt Count MPV Sodium Potassium Chloride Carbon Dioxide Anion Gap BUN Creatinine POC Glucometer 295 204 Random Glucose Calcium Free T3 2.4 05/22/17 05/22/17 05/22/17 06:00 08:32 12:22 WBC 5.0 RBC 3.74 Hgb 11.7 Hct 35.0 MCV 93.7 MCH 31.4 MCHC 33.5 RDW 13.5 Plt Count 129 L D MPV 9.9 Sodium 136 Potassium 3.8 Chloride 103 Carbon Dioxide 22 Anion Gap 11 BUN 11 Creatinine 1.0 POC Glucometer 269 Random Glucose 235 H D Calcium 7.5 L Free T3 05/22/17 17:36 WBC RBC Hgb Hct MCV MCH MCHC RDW Plt Count MPV Sodium Potassium Chloride Carbon Dioxide Anion Gap BUN Creatinine POC Glucometer 172 Random Glucose Calcium Free T3 Microbiology 05/19/17 16:38 Blood - Peripheral Venous Blood Culture - Preliminary NO GROWTH OBTAINED AFTER 72 HOURS, INCUBATION TO CONTINUE FOR 2 DAYS. 05/19/17 16:59 Blood - Peripheral Venous Blood Culture - Preliminary NO GROWTH OBTAINED AFTER 72 HOURS, INCUBATION TO CONTINUE FOR 2 DAYS. 05/19/17 19:50 Urine - Urine Clean Catch Urine Culture - Final Escherichia Coli 05/20/17 17:30 Stool Clostridium difficile Antigen (MAYI) - Final 05/20/17 17:30 Stool Clostridium difficile Toxin Assay - Final 05/19/17 17:00 Nasopharyngeal Swab Influenza Types A,B Antigen (MAYI) - Final 05/19/17 17:00 Nasopharyngeal Swab - Final ASSESSMENT AND PLAN: 56 yof with Polycystic kidney disease, polymylinating neuropathy, on cellcept, frequent UTI/Pyelonephritis admitted with sepsis from UTI/?Pyelonephritis, weakness, mild Winter -Sepsis due to complicated UTI -Acute C difficile associated diarrhea -Mild WINTER -IDDM -Weakness -H/o polycystic kidney disease -Polymyelinating neuropathy on cellcept Plan: Ceftriaxone day 4, clinically improved, urine cultures noted, discuss with ID to transition to keflex Patient reports being arranged for outpatient urology follow up with possible cystoscopy. Her underlying neurological disease could be contributory CT A/P neg for obstructive process. Flagyl day 2, change to PO. contact precautions, avoid lomotil. Cellcept on hold for now. IVF. Increase levemir to 40 units daily. Continue iVF. ISS, diabetic diet. DVTPPX Dispo planning in 24 hours as improves. PT eval. Admit to inpatient care. Plan discussed with patient and all questions answered.
[2017-05-22] MEDS ORDERED: INSULIN (NOVOLOG) ASPART 100 UNITS/ML 10ML VIAL ONE (19:51)
[2017-05-22] MEDS ORDERED: traMADol HCL 50 MG TABLET PO PRN (20:24)
[2017-05-22] MEDS: LIDOCAINE PATCH REMOVAL MC SCH (22:09)
--- NOTE | 2017-05-22 22:55 | PN ---
Physical Exam: SUBJECTIVE: Patient seen and examined. Pt c/o diarrhea and weakness, but feeling better overall. Pt denies abdominal pain, fever, chills. OBJECTIVE: Vital Signs Period Temp Pulse Resp BP Sys/Muñoz Pulse Ox Last 24 Hr 97.7 F-98.4 F 63-79 18-20 95-143/57-68 94 GENERAL: The patient is awake, alert, and fully oriented, in no acute distress. LUNGS: Breath sounds equal, clear to auscultation bilaterally, no wheezes, no crackles, no accessory muscle use. HEART: Regular rate and rhythm, S1, S2 without murmur, rub or gallop. ABDOMEN: Soft, nontender, nondistended, no guarding. EXTREMITIES: Warm, well-perfused. 1+ pitting edema to snehal LE. PSYCH: Normal mood, normal affect. SKIN: Warm, dry, normal turgor, no rashes or lesions noted Laboratory Results - last 24 hr 05/21/17 05/22/17 05/22/17 06:00 05:59 06:00 WBC 5.0 RBC 3.74 Hgb 11.7 Hct 35.0 MCV 93.7 MCH 31.4 MCHC 33.5 RDW 13.5 Plt Count 129 L D MPV 9.9 Sodium Potassium Chloride Carbon Dioxide Anion Gap BUN Creatinine POC Glucometer 204 Random Glucose Calcium Free T3 2.4 05/22/17 05/22/17 05/22/17 08:32 12:22 17:36 WBC RBC Hgb Hct MCV MCH MCHC RDW Plt Count MPV Sodium 136 Potassium 3.8 Chloride 103 Carbon Dioxide 22 Anion Gap 11 BUN 11 Creatinine 1.0 POC Glucometer 269 172 Random Glucose 235 H D Calcium 7.5 L Free T3 Active Medications Generic Name Dose Route Start Last Admin Trade Name Freq PRN Reason Stop Dose Admin Cholecalciferol 2,000 unit 05/20/17 10:00 05/22/17 10:40 Vitamin D3 - PO 2,000 unit DAILY JASMYN Administration Folic Acid 1 mg 05/20/17 10:00 05/22/17 10:40 Folic Acid - PO 1 mg DAILY JASMYN Administration Gabapentin 600 mg 05/20/17 06:00 05/22/17 17:43 Neurontin - PO 600 mg Q6HPO JASMYN Administration Heparin Sodium (Porcine) 5,000 unit 05/20/17 06:00 05/22/17 22:11 Heparin - SQ 5,000 unit TID JASMYN Administration CEFTRIAXONE 1 G/50 ML PREMIX 50 mls @ 100 mls/hr 05/20/17 10:00 05/22/17 10: 38 Ceftriaxone 1 Gm-D5w Bag IVPB 100 mls/hr DAILY JASMYN Administration Sodium Chloride 1,000 mls @ 100 mls/hr 05/21/17 16:04 05/22/17 16:05 Normal Saline - IV 100 mls/hr ASDIR JASMYN Administration Insulin Aspart 1 vial 05/20/17 07:00 05/22/17 22:11 Novolog Vial Sliding Scale - SQ 4 unit ACHS JASMYN Administration Protocol Insulin Detemir 40 units 05/22/17 18:00 Levemir Vial SQ DAILY@0700 [facility] Levothyroxine Sodium 112 mcg/ 137 mcg 05/20/17 07:00 05/22/17 06:26 Levothyroxine Sodium 25 mcg PO 137 mcg DAILY@0700 [facility] Administration Lidocaine 1 patch 05/20/17 10:00 05/22/17 10:41 Lidoderm Patch - TP 1 patch DAILY JASMYN Administration Magnesium Oxide 400 mg 05/20/17 10:00 05/22/17 22:09 Mag-Ox - PO 400 mg BID JASMYN Administration Metoprolol Succinate 50 mg 05/20/17 10:00 05/22/17 10:41 Toprol Xl - PO 50 mg DAILY JASMYN Administration Metronidazole 500 mg 05/22/17 14:00 05/22/17 22:07 Flagyl - PO 500 mg TID JASMYN Administration Miscellaneous 1 each 05/20/17 22:00 05/22/17 22:09 Lidoderm Patch Removal MC 1 each DAILY@2200 JASMYN Administration Potassium Chloride 20 meq 05/20/17 10:00 05/22/17 22:09 K-Dur - PO 20 meq BID JASMYN Administration Sitagliptin Phosphate 50 mg 05/22/17 07:00 05/22/17 06:26 Januvia - PO 50 mg DAILY@0700 JASMYN Administration Tramadol HCl 50 mg 05/22/17 20:24 Ultram - PO Q6H PRN PAIN ASSESSMENT/PLAN: 56yo F with PMH of chronic UTI's, IDDM, Chronic Inflammatory Demyelinating Polyneuropathy (takes Cellcept, although off x 3 mo), presented with progressive fatigue/malaise and abdominal pain x 3-4 weeks, admitted for sepsis 2/2 UTI. # sepsis 2/2 UTI - IV Ceftriaxone Day 4 - IV Flagyl Day 2 - ID Consult - IVFs - urine culture (+) for E. coli - blood culture (-) x 72 hrs - immunosuppressed 2/2 hx of taking Cellcept for CIPD - hold for now - Pt reports having outpt Urology f/u for possible cystoscopy 2/2 recurrent UTIs/pyelonephritis. # dm - increase Levemir to 40U AM - BGMs - Novolog SSI - hold Janumet - continue Januvia # WINTER - resolved - hold home med of GLORIA until kidney function further stabilizes # hypothyoidism - continue Synthroid # FEN - Fluids: NS @ 100 ml/hr - Electrolytes: continue to monitor - Nutrition: diabetic diet # Prophylaxis - DVT ppx with Heparin TID - deconditioning ppx with PT Visit type - Emergency Visit Emergency Visit: Yes ED Registration Date: 05/21/17 Care time: The patient presented to the Emergency Department on the above date and was hospitalized for further evaluation of their emergent condition. - New Patient This patient is new to me today: No - Critical Care Critical Care patient: No
[2017-05-23] MEDS: GABAPENTIN 300 MG CAPSULE (FP) PO SCH ×3 (00:03→12:22)
--- NOTE | 2017-05-23 00:18 | CONS ---
DATE OF CONSULTATION: DATE OF DICTATION: 05/22/2017 The patient is a 56-year-old female who was evaluated for urinary tract infection and Clostridium difficile colitis. She has a history of polycystic kidney disease, recurrent urinary tract infections, and chronic inflammatory demyelinating polyneuropathy who is evaluated for recurrent urinary tract infection and diarrhea. The patient reports having at least 8 or 9 episodes of urinary tract infections in the past 1 year. She reports that she has received various antibiotics for varied organisms. She denies history of resistant urinary tract pathogens in the past. She now presents with a 4-week history of generalized weakness, malaise, anorexia, nausea, vomiting, subjective fever and chills. The patient states that when she gets a recurrent urinary tract infection, she does not have dysuria or hematuria. No suprapubic or flank pain. Rather she develops a syndrome of generalized weakness, malaise, anorexia and nausea. She presented to the emergency room where her urinalysis showed many white cells. Urine culture grew an E. coli. She was empirically treated with ceftriaxone. Her course was complicated by loose bowel movements. Stool was positive for Clostridium difficile. Of note, the patient was on CellCept for chronic inflammatory demyelinating polyneuropathy; however, has been off of this for the past 3 months. She is normally followed by her physicians at [place]. PAST MEDICAL HISTORY: Positive for chronic inflammatory demyelinating polyneuropathy, history of insulin-dependent diabetes mellitus, hypertension, hypothyroidism, polycystic kidney disease, chronic liver disease. ALLERGIES: VICODIN AND OXYCODONE. MEDICATIONS: Include vitamin B12, folic acid, Neurontin, Lidoderm, Toprol, Janumet, tramadol, Levemir, Synthroid, lisinopril, mycophenolate (not presently taking). SOCIAL HISTORY: Former smoker, lives at home. SYSTEMS REVIEW: Neurologic: No loss of consciousness, seizure activity, or focal weakness. Cardiac: Negative chest pain or palpitations. Respiratory: Negative for cough or sputum production. Gastrointestinal: Positive nausea and diarrhea. Genitourinary: Positive for urinary tract infection. LABORATORY DATA: White count 5.0, hematocrit 35.0, platelet count 129, BUN 11, creatinine 1.0. Urinalysis: 1,738 white cells. Urine culture: E. coli. Chest x-ray shows atelectasis. Blood cultures preliminarily negative. PHYSICAL EXAMINATION: General: She is out of bed to chair in no acute distress, morbidly obese, temperature 98, blood pressure 111/62, pulse 79 and regular, respirations 20 per minute. HEENT: Sclerae anicteric. Heart: Sounds S1, S2. Lungs: Clear. Abdomen: Obese, soft, nontender. No suprapubic or flank tenderness. Extremities: Negative for edema. IMPRESSION: 1. Recurrent urinary tract infection: Escherichia coli. 2. Clostridium difficile colitis. 3. Chronic inflammatory demyelinating polyneuropathy. 4. Polycystic kidney disease. 5. Thrombocytopenia. Continue ceftriaxone for treatment of recurrent urinary tract infections, Flagyl 500 mg p.o. q. 8h. for Clostridium difficile colitis. Complete 10-14 day course. Contact precautions. Thank you for the kind referral. GHAZAL WARD M.D. [id number]
[2017-05-23] MEDS ORDERED: LEVOTHYROXINE NA 112 MCG TABLET (FP) ONE (05:12)
[2017-05-23] MEDS ORDERED: LEVOTHYROXINE NA 25 MCG TABLET (FP) ONE (05:12)
[2017-05-23] MEDS: metroNIDAZOLE 250 MG TABLET PO SCH ×2 (06:14→14:50)
[2017-05-23] MEDS: LEVOTHYROXINE 112 MCG, LEVOTHYROXINE 25 MCG PO SCH (06:15)
[2017-05-23] MEDS: sitaGLIPtin PHOSPHATE 50 MG TABLET PO SCH (06:15)
[2017-05-23] MEDS: HEPARIN NA (PORCINE) 5,000 UNITS/ML 1ML VIAL SQ SCH ×2 (06:16→14:51)
[2017-05-23] MEDS: INSULIN SLIDING SCALE (NOVOLOG) 1 VIAL SQ SCH ×2 (06:53→12:22)
[2017-05-23] MEDS ORDERED: INSULIN (NOVOLOG) ASPART 100 UNITS/ML 10ML VIAL ONE (06:56)
[2017-05-23] MEDS: CEFTRIAXONE 1 G/50 ML PREMIX 50 ML IVPB SCH (09:28)
[2017-05-23] MEDS: MAGNESIUM OXIDE 400 MG TABLET (FP) PO SCH (09:29)
[2017-05-23] MEDS: FOLIC ACID 1 MG TABLET (FP) PO SCH (09:29)
[2017-05-23] MEDS: POTASSIUM CHLORIDE TABS 20 MEQ TABLET.ER (FP) PO SCH (09:29)
[2017-05-23] MEDS: CHOLECALCIFEROL (VITAMIN D3) 1,000 UNIT TABLET (FP) PO SCH (09:29)
[2017-05-23] MEDS: METOPROLOL SUCCINATE 50 MG TAB.SR.24H (FP) PO SCH (09:30)
[2017-05-23] MEDS: LIDOCAINE 5% TOPICAL PATCH TP SCH (09:30)
[2017-05-23 09:41] VITALS: BP 108/53; PULSE 70; TEMP 99
--- NOTE | 2017-05-23 12:14 | DS ---
Physical Exam: SUBJECTIVE: Patient seen and examined, abdominal and back pain resolved, no urinary symptoms. Tolerating diet well. Diarrhea improved. Feels better and happy to go home. OBJECTIVE: Vital Signs Period Temp Pulse Resp BP Sys/Muñoz Pulse Ox Last 24 Hr 97.7 F-99.0 F 69-73 18-20 95-143/53-70 94 PHYSICAL EXAM GENERAL: The patient is awake, alert, and fully oriented, in no acute distress. HEAD: Normal with no signs of trauma. EYES: PERRL, extraocular movements intact, sclera anicteric, conjunctiva clear. ENT: Ears normal, nares patent, oropharynx clear without exudates, moist mucous membranes. NECK: Trachea midline, full range of motion, supple. LUNGS: Breath sounds equal, clear to auscultation bilaterally, no wheezes, no crackles, no accessory muscle use. HEART: S1S2 regular ABDOMEN: Soft, nontender, nondistended, normoactive bowel sounds, no guarding, no rebound, no CVA or suprapubic tenderness EXTREMITIES: 2+ pulses, warm, well-perfused, no edema. NEUROLOGICAL: lower extermity weakness chronic PSYCH: Normal mood, normal affect. SKIN: Warm, dry, normal turgor, no rashes or lesions noted. LABS Laboratory Results - last 24 hr 05/22/17 05/22/17 05/22/17 12:22 17:36 22:08 POC Glucometer 269 172 231 05/23/17 06:13 POC Glucometer 309 Laboratory Tests 05/19/17 05/19/17 05/19/17 17:00 17:00 17:00 WBC 7.7 RBC 4.61 D Hgb 14.7 D Hct 42.4 D MCV 92.2 MCH 31.9 MCHC 34.7 RDW 13.1 D Plt Count 180 D MPV 9.4 Neutrophils % 70.0 Lymphocytes % 23.1 Monocytes % 5.3 Eosinophils % 0.8 Basophils % 0.8 VBG pH 7.40 POC VBG pCO2 46.9 POC VBG pO2 33.2 Mixed VBG HCO3 28.5 H Sodium 136 Potassium 3.1 L D Chloride 94 L D Carbon Dioxide 27 Anion Gap 15 BUN 12 Creatinine 1.2 H D Creat Clearance w eGFR 46.14 POC Glucometer Random Glucose 278 H D Lactic Acid Calcium 8.8 Phosphorus Magnesium 1.3 L Total Bilirubin 1.8 H D AST 29 D ALT 23 D Alkaline Phosphatase 116 D Total Protein 6.9 D Albumin 3.1 L D Lipase TSH Free T4 Free T3 Urine Color Urine Appearance Urine pH Ur Specific [place] Urine Protein Urine Glucose (UA) Urine Ketones Urine Blood Urine Nitrite Urine Bilirubin Urine Urobilinogen Ur Leukocyte Esterase Urine WBC (Auto) Urine RBC (Auto) Ur Epithelial Cells Urine Bacteria Urine Mucus Ur Random Sodium Urine Creatinine Acetone, Qual Positive small 1+ H 05/19/17 05/19/17 05/19/17 17:00 18:24 19:50 WBC RBC Hgb Hct MCV MCH MCHC RDW Plt Count MPV Neutrophils % Lymphocytes % Monocytes % Eosinophils % Basophils % VBG pH POC VBG pCO2 POC VBG pO2 Mixed VBG HCO3 Sodium Potassium Chloride Carbon Dioxide Anion Gap BUN Creatinine Creat Clearance w eGFR POC Glucometer [phone] Random Glucose Lactic Acid 2.8 H* Calcium Phosphorus Magnesium Total Bilirubin AST ALT Alkaline Phosphatase Total Protein Albumin Lipase TSH Free T4 Free T3 Urine Color [place] Urine Appearance Cloudy Urine pH 6.0 Ur Specific [place] 1.016 Urine Protein 1+ H Urine Glucose (UA) 3+ H Urine Ketones 1+ H Urine Blood 1+ H Urine Nitrite Positive Urine Bilirubin Negative Urine Urobilinogen Negative Ur Leukocyte Esterase 1+ H Urine WBC (Auto) 1738 Urine RBC (Auto) 13 Ur Epithelial Cells Moderate Urine Bacteria Rare Urine Mucus Rare Ur Random Sodium Urine Creatinine Acetone, Qual 05/20/17 05/20/17 05/20/17 02:30 02:30 06:00 WBC 4.6 D RBC 3.96 Hgb 12.4 D Hct 37.2 MCV 94.1 MCH 31.4 MCHC 33.4 RDW 13.3 Plt Count 120 L D MPV 9.1 Neutrophils % 55.6 D Lymphocytes % 35.6 D Monocytes % 5.7 Eosinophils % 2.3 D Basophils % 0.8 VBG pH POC VBG pCO2 POC VBG pO2 Mixed VBG HCO3 Sodium Potassium Chloride Carbon Dioxide Anion Gap BUN Creatinine Creat Clearance w eGFR POC Glucometer Random Glucose Lactic Acid 1.9 Calcium Phosphorus Magnesium Total Bilirubin AST ALT Alkaline Phosphatase Total Protein Albumin Lipase TSH Free T4 Free T3 Urine Color Urine Appearance Urine pH Ur Specific [place] Urine Protein Urine Glucose (UA) Urine Ketones Urine Blood Urine Nitrite Urine Bilirubin Urine Urobilinogen Ur Leukocyte Esterase Urine WBC (Auto) Urine RBC (Auto) Ur Epithelial Cells Urine Bacteria Urine Mucus Ur Random Sodium 42 Urine Creatinine 137.0 Acetone, Qual 05/20/17 05/20/17 05/20/17 06:00 06:03 11:28 WBC RBC Hgb Hct MCV MCH MCHC RDW Plt Count MPV Neutrophils % Lymphocytes % Monocytes % Eosinophils % Basophils % VBG pH POC VBG pCO2 POC VBG pO2 Mixed VBG HCO3 Sodium 139 Potassium 3.2 L Chloride 102 Carbon Dioxide 24 Anion Gap 13 BUN 12 Creatinine 1.1 H Creat Clearance w eGFR 51.02 POC Glucometer 324 318 Random Glucose 320 H* Lactic Acid Calcium 7.7 L Phosphorus 2.4 L D Magnesium 2.1 D Total Bilirubin 1.6 H AST 16 D ALT 19 Alkaline Phosphatase 95 Total Protein 5.8 L Albumin 2.6 L Lipase 69 L TSH 7.12 H Free T4 Free T3 Urine Color Urine Appearance Urine pH Ur Specific [place] Urine Protein Urine Glucose (UA) Urine Ketones Urine Blood Urine Nitrite Urine Bilirubin Urine Urobilinogen Ur Leukocyte Esterase Urine WBC (Auto) Urine RBC (Auto) Ur Epithelial Cells Urine Bacteria Urine Mucus Ur Random Sodium Urine Creatinine Acetone, Qual 05/20/17 05/20/17 05/21/17 16:29 21:04 06:00 WBC 4.3 RBC 3.80 Hgb 11.8 Hct 35.6 MCV 93.8 MCH 31.1 MCHC 33.2 RDW 13.4 Plt Count 106 L MPV 9.6 Neutrophils % Lymphocytes % Monocytes % Eosinophils % Basophils % VBG pH POC VBG pCO2 POC VBG pO2 Mixed VBG HCO3 Sodium Potassium Chloride Carbon Dioxide Anion Gap BUN Creatinine Creat Clearance w eGFR POC Glucometer 282 311 Random Glucose Lactic Acid Calcium Phosphorus Magnesium Total Bilirubin AST ALT Alkaline Phosphatase Total Protein Albumin Lipase TSH Free T4 Free T3 Urine Color Urine Appearance Urine pH Ur Specific [place] Urine Protein Urine Glucose (UA) Urine Ketones Urine Blood Urine Nitrite Urine Bilirubin Urine Urobilinogen Ur Leukocyte Esterase Urine WBC (Auto) Urine RBC (Auto) Ur Epithelial Cells Urine Bacteria Urine Mucus Ur Random Sodium Urine Creatinine Acetone, Qual 05/21/17 05/21/17 05/21/17 06:00 06:00 06:31 WBC RBC Hgb Hct MCV MCH MCHC RDW Plt Count MPV Neutrophils % Lymphocytes % Monocytes % Eosinophils % Basophils % VBG pH POC VBG pCO2 POC VBG pO2 Mixed VBG HCO3 Sodium 138 Potassium 3.4 L Chloride 103 Carbon Dioxide 24 Anion Gap 11 BUN 12 Creatinine 1.0 Creat Clearance w eGFR POC Glucometer 295 Random Glucose 296 H Lactic Acid Calcium 7.4 L Phosphorus 2.6 Magnesium 1.9 Total Bilirubin AST ALT Alkaline Phosphatase Total Protein Albumin Lipase TSH Free T4 1.13 Free T3 2.4 Urine Color Urine Appearance Urine pH Ur Specific [place] Urine Protein Urine Glucose (UA) Urine Ketones Urine Blood Urine Nitrite Urine Bilirubin Urine Urobilinogen Ur Leukocyte Esterase Urine WBC (Auto) Urine RBC (Auto) Ur Epithelial Cells Urine Bacteria Urine Mucus Ur Random Sodium Urine Creatinine Acetone, Qual 05/21/17 05/21/17 05/21/17 11:27 16:30 20:58 WBC RBC Hgb Hct MCV MCH MCHC RDW Plt Count MPV Neutrophils % Lymphocytes % Monocytes % Eosinophils % Basophils % VBG pH POC VBG pCO2 POC VBG pO2 Mixed VBG HCO3 Sodium Potassium Chloride Carbon Dioxide Anion Gap BUN Creatinine Creat Clearance w eGFR POC Glucometer 284 309 295 Random Glucose Lactic Acid Calcium Phosphorus Magnesium Total Bilirubin AST ALT Alkaline Phosphatase Total Protein Albumin Lipase TSH Free T4 Free T3 Urine Color Urine Appearance Urine pH Ur Specific [place] Urine Protein Urine Glucose (UA) Urine Ketones Urine Blood Urine Nitrite Urine Bilirubin Urine Urobilinogen Ur Leukocyte Esterase Urine WBC (Auto) Urine RBC (Auto) Ur Epithelial Cells Urine Bacteria Urine Mucus Ur Random Sodium Urine Creatinine Acetone, Qual 05/22/17 05/22/17 05/22/17 05:59 06:00 08:32 WBC 5.0 RBC 3.74 Hgb 11.7 Hct 35.0 MCV 93.7 MCH 31.4 MCHC 33.5 RDW 13.5 Plt Count 129 L D MPV 9.9 Neutrophils % Lymphocytes % Monocytes % Eosinophils % Basophils % VBG pH POC VBG pCO2 POC VBG pO2 Mixed VBG HCO3 Sodium 136 Potassium 3.8 Chloride 103 Carbon Dioxide 22 Anion Gap 11 BUN 11 Creatinine 1.0 Creat Clearance w eGFR POC Glucometer 204 Random Glucose 235 H D Lactic Acid Calcium 7.5 L Phosphorus Magnesium Total Bilirubin AST ALT Alkaline Phosphatase Total Protein Albumin Lipase TSH Free T4 Free T3 Urine Color Urine Appearance Urine pH Ur Specific [place] Urine Protein Urine Glucose (UA) Urine Ketones Urine Blood Urine Nitrite Urine Bilirubin Urine Urobilinogen Ur Leukocyte Esterase Urine WBC (Auto) Urine RBC (Auto) Ur Epithelial Cells Urine Bacteria Urine Mucus Ur Random Sodium Urine Creatinine Acetone, Qual 05/22/17 05/22/17 05/22/17 12:22 17:36 22:08 WBC RBC Hgb Hct MCV MCH MCHC RDW Plt Count MPV Neutrophils % Lymphocytes % Monocytes % Eosinophils % Basophils % VBG pH POC VBG pCO2 POC VBG pO2 Mixed VBG HCO3 Sodium Potassium Chloride Carbon Dioxide Anion Gap BUN Creatinine Creat Clearance w eGFR POC Glucometer 269 172 231 Random Glucose Lactic Acid Calcium Phosphorus Magnesium Total Bilirubin AST ALT Alkaline Phosphatase Total Protein Albumin Lipase TSH Free T4 Free T3 Urine Color Urine Appearance Urine pH Ur Specific [place] Urine Protein Urine Glucose (UA) Urine Ketones Urine Blood Urine Nitrite Urine Bilirubin Urine Urobilinogen Ur Leukocyte Esterase Urine WBC (Auto) Urine RBC (Auto) Ur Epithelial Cells Urine Bacteria Urine Mucus Ur Random Sodium Urine Creatinine Acetone, Qual 05/23/17 06:13 WBC RBC Hgb Hct MCV MCH MCHC RDW Plt Count MPV Neutrophils % Lymphocytes % Monocytes % Eosinophils % Basophils % VBG pH POC VBG pCO2 POC VBG pO2 Mixed VBG HCO3 Sodium Potassium Chloride Carbon Dioxide Anion Gap BUN Creatinine Creat Clearance w eGFR POC Glucometer 309 Random Glucose Lactic Acid Calcium Phosphorus Magnesium Total Bilirubin AST ALT Alkaline Phosphatase Total Protein Albumin Lipase TSH Free T4 Free T3 Urine Color Urine Appearance Urine pH Ur Specific [place] Urine Protein Urine Glucose (UA) Urine Ketones Urine Blood Urine Nitrite Urine Bilirubin Urine Urobilinogen Ur Leukocyte Esterase Urine WBC (Auto) Urine RBC (Auto) Ur Epithelial Cells Urine Bacteria Urine Mucus Ur Random Sodium Urine Creatinine Acetone, Qual Microbiology 05/19/17 16:38 Blood - Peripheral Venous Blood Culture - Preliminary NO GROWTH OBTAINED AFTER 72 HOURS, INCUBATION TO CONTINUE FOR 2 DAYS. 05/19/17 16:59 Blood - Peripheral Venous Blood Culture - Preliminary NO GROWTH OBTAINED AFTER 72 HOURS, INCUBATION TO CONTINUE FOR 2 DAYS. 05/19/17 19:50 Urine - Urine Clean Catch Urine Culture - Final Escherichia Coli 05/20/17 17:30 Stool Clostridium difficile Antigen (MAYI) - Final 05/20/17 17:30 Stool Clostridium difficile Toxin Assay - Final 05/19/17 17:00 Nasopharyngeal Swab Influenza Types A,B Antigen (MAYI) - Final 05/19/17 17:00 Nasopharyngeal Swab - Final HOSPITAL COURSE: Date of Admission:05/21/17 Date of Discharge: 05/23/17 Patient was admitted with weakness and found with lower uncomplicated UTI. She was started on hydration and IV ceftriaxone. Her urine cultures came back positive for E. coli sensitive to cephalosporins and fluoroquinilones. She also developed C difficile diarrhea. She reported prior history of 8-9 UTI/ Pyelonephritis and recurrent C defficile diarrhea, last episode in 01/2017 when was admitted with sepsis, UTI and C difficile infection. She had renal ultrasound which showed renal cyst but no acute process. her CT A/ P was again negative for stones, obstruction or acute process but showed cirrhosis and splenomegaly which was discussed with patient. Infectious disease was consulted and she is transitioned to keflex and slow prolonged oral vancomycin taper. She also has outpatient urology follow up and is planned for cystoscopy as discussed. She has not fevers or leucocytosis and tolerating diet well currently. Her diarrhea has improved. She was evaluated by physical therapy and recommended continued PT, however patient declined home PT or VNS but was agreable to outpatient PT prescription. Advised to continue her walker and wheelchair as instructed and have assist over the next few days till her symptoms resolve, which patient is agreeable. Minutes to complete discharge: 40 Discharge Summary Reason For Visit: URINARY TRACT INFECTION,FEVER,DIABETES MELLITUS Current Active Problems Diabetes (Acute) Fever (Acute) UTI (urinary tract infection) (Acute) Condition: Good - Instructions Diet, Activity, Other Instructions: You were admitted with urine infection and C difficile diarrhea. You were placed on antibiotics and your symptoms improved. You were evaluated by Physical therapy and advised continued therapy, however, you would prefer outpatient Physical therapy and feel comfortable going home without VNS or home physical therapy. Use walker and wheelchair as indicated. You also had renal ultrasound showed a kidney cyst but no other abnormality. You also had CT scan of your belly that was negative for obstruction or acute concerns but did show cirrhosis and splenomegaly for which you will need continued follow up with your doctor. medications: _hold your cellcept till further instructed by your doctor You are started on 2 new medications: 1. Keflex 500 mg orally every 12 hourly starting tomorrow till 05/29/2017. 2. Vancomycin oral taper as follows: 125 mg orally 4 times daily for 14 days, then 125 mg orally 3 times daily for 7 days then 125 mg orally 2 times daily for 7 days then 125 mg orally daily for 7 days then 125 mg orally every other day for 7 days then 125 mg orally every 3rd day for 7 days, then off. -Continue your other medications as before. -Your pharmacy has been called and vancomycin prescription has been confirmed. PCP in 1 week Can follow up with infectious disease Dr. Riley in 2 weeks for recurrent C difficile infection and urinary infection. Continue urologist follow up as prior. Referrals: Joel Riley MD [Staff Physician] - Disposition: HOME - Home Medications Comprehensive Discharge Medication List: Ambulatory Orders Cyanocobalamin Vit B-12 Inj. [Vitamin B12 Injection -] 1,000 mcg IM Mo #0 vial 02/20/13 Folic Acid - 1 mg PO DAILY #0 tablet NS 02/20/13 Gabapentin [Neurontin] 600 mg PO Q6H #0 tablet 02/20/13 Lidocaine 5% Patch [Lidoderm -] 1 patch TP DAILY #0 patch 02/20/13 Magnesium Oxide [Mag-Ox -] 400 mg PO BID #0 tablet 02/20/13 Methyl-B12/l-Mefolate/B6 Phos [Metanx Tablet] 1 tab PO BID #0 tablet 02/20/13 Metoprolol Succinate [Toprol XL -] 50 mg PO DAILY #0 tab.sr.24h 02/20/13 Sitagliptin Phos/Metformin HCl [Janumet 50-500 mg Tablet] 1 each PO BIDAC #0 tablet 02/20/13 Tramadol HCl 50 mg PO Q6H PRN #0 tablet 02/20/13 Ergocalciferol (Vitamin D2) [Vitamin D2] 2,000 unit PO DAILY 03/14/13 Insulin (Levemir) [Levemir Flexpen -] 54 units SQ DAILY@0700 05/19/17 Levothyroxine [Synthroid -] 137 mcg PO DAILY 05/19/17 Lisinopril 20 mg PO DAILY 05/19/17 Multivitamin [One Daily] 1 each PO DAILY 05/19/17 Potassium Chloride 20 meq PO BID 05/19/17 Cephalexin [Keflex] 500 mg PO Q12H #12 capsule 05/23/17 Vancomycin HCl [Vancocin HCl] 125 mg PO ASDIR #105 capsule 05/23/17 This patient is new to me today: No Emergency Visit: No Critical Care patient: No - Discharge Referral Referred to [facility] No
--- NOTE | 2017-05-23 14:41 | PN ---
Progress Note, Physician History of Present Illness: Feeling better Diarrhea improved Reporst one small loose BM today No fever/chills - Current Medication List Current Medications: Active Medications Cholecalciferol (Vitamin D3 -) 2,000 unit PO DAILY [facility] Last Admin: 05/23/17 09:29 Dose: 2,000 unit Folic Acid (Folic Acid -) 1 mg PO DAILY [facility] Last Admin: 05/23/17 09:29 Dose: 1 mg Gabapentin (Neurontin -) 600 mg PO Q6HPO [facility] Last Admin: 05/23/17 12:22 Dose: 600 mg Heparin Sodium (Porcine) (Heparin -) 5,000 unit SQ TID [facility] Last Admin: 05/23/17 06:16 Dose: 5,000 unit CEFTRIAXONE 1 G/50 ML PREMIX (Ceftriaxone 1 Gm-D5w Bag) 50 mls @ 100 mls/hr IVPB DAILY [facility] Last Admin: 05/23/17 09:28 Dose: 100 mls/hr Sodium Chloride (Normal Saline -) 1,000 mls @ 100 mls/hr IV ASDIR [facility] Last Admin: 05/22/17 16:05 Dose: 100 mls/hr Insulin Aspart (Novolog Vial Sliding Scale -) 1 vial SQ ACHS [facility] PRN Reason: Protocol Last Admin: 05/23/17 12:22 Dose: 6 unit Insulin Detemir (Levemir Vial) 40 units SQ DAILY@0700 [facility] Last Admin: 05/23/17 06:53 Dose: 40 units Levothyroxine Sodium 112 mcg/ (Levothyroxine Sodium 25 mcg) 137 mcg PO DAILY@ 0700 [facility] Last Admin: 05/23/17 06:15 Dose: 137 mcg Lidocaine (Lidoderm Patch -) 1 patch TP DAILY [facility] Last Admin: 05/23/17 09:30 Dose: 1 patch Magnesium Oxide (Mag-Ox -) 400 mg PO BID [facility] Last Admin: 05/23/17 09:29 Dose: 400 mg Metoprolol Succinate (Toprol Xl -) 50 mg PO DAILY [facility] Last Admin: 05/23/17 09:30 Dose: 50 mg Metronidazole (Flagyl -) 500 mg PO TID [facility] Last Admin: 05/23/17 06:14 Dose: 500 mg Miscellaneous (Lidoderm Patch Removal) 1 each MC DAILY@2200 [facility] Last Admin: 05/22/17 22:09 Dose: 1 each Potassium Chloride (K-Dur -) 20 meq PO BID [facility] Last Admin: 05/23/17 09:29 Dose: 20 meq Sitagliptin Phosphate (Januvia -) 50 mg PO DAILY@0700 [facility] Last Admin: 05/23/17 06:15 Dose: 50 mg Tramadol HCl (Ultram -) 50 mg PO Q6H PRN PRN Reason: PAIN Last Admin: 05/23/17 06:57 Dose: 50 mg - Objective Vital Signs: Vital Signs Temperature 99.0 F 05/23/17 09:40 Pulse Rate 70 05/23/17 09:40 Respiratory Rate 18 05/23/17 09:40 Blood Pressure 108/53 05/23/17 09:40 O2 Sat by Pulse Oximetry (%) 94 L 05/22/17 21:00 Constitutional: Yes: No Distress Eyes: Yes: Conjunctiva Clear Cardiovascular: Yes: Regular Rate and Rhythm, S1, S2 Respiratory: Yes: CTA Bilaterally Gastrointestinal: Yes: Normal Bowel Sounds, Soft Labs: CBC, BMP 05/22/17 06:00 05/22/17 08:32 Assessment/Plan Recurrent UTI Recurrent C difficile IDDM CIDP PKD Agree with switch to oral cephalosprin, slow vancomycin taper Outpatient follow up
== END 2017-05-23 15:38 | disposition home or self-care (01) | DRG 872 ==
LOC: JER 16:40 → INTOOBSV 22:02 → JERBED 22:02 → UNDOADMOB 22:02 → JERBED 23:10 → J7W 05-20 02:06 → OBSVTOIN 05-21 15:45 → J7W 05-21 19:50
PROVIDERS: ADMIT Internal Medicine; ATTEND Hospitalist
DX: A41.89 Other specified sepsis (principal); G61.81 Chronic inflammatory demyelinating polyneuritis; N17.9 Acute kidney failure, unspecified; N39.0 Urinary tract infection, site not specified; A04.72 Enterocolitis due to Clostridium difficile, not specified as recurrent; B96.29 Other Escherichia coli [E. coli] as the cause of diseases classified elsewhere; E03.9 Hypothyroidism, unspecified; E11.40 Type 2 diabetes mellitus with diabetic neuropathy, unspecified; I10 Essential (primary) hypertension; K74.69 Other cirrhosis of liver; E87.6 Hypokalemia; N28.1 Cyst of kidney, acquired; E83.39 Other disorders of phosphorus metabolism; J45.909 Unspecified asthma, uncomplicated; E11.65 Type 2 diabetes mellitus with hyperglycemia; Z79.4 Long term (current) use of insulin; Z99.3 Dependence on wheelchair
CPT/HCPCS: 36415; 71020-TC; 74176-TC; 76775-TC; 80048; 80053; 81003; 81015; 82009; 82570; 82803; 83605; 83690; 83735; 84100; 84300; 84439; 84443; 84481; 85025; 85027; 87040; 87086; 87186; 87324; 87449; 87804; 93005; 93010; 97116-GP; 97161-GP; 99285-25; G0378; J1644

== ENCOUNTER 2017-06-02 18:25 | Emergency (ER) | payer MEDICARE ==
--- NOTE | 2017-06-02 18:35 | PDOC ---
Rapid Medical Evaluation Chief Complaint: Weakness Time Seen by Provider: 06/02/17 18:32 Medical Evaluation: Allergies Allergy/AdvReac Type Severity Reaction Status Date / Time shellfish derived Allergy Unknown Rash Verified 06/02/17 18:31 hydrocodone bitartrate Allergy Verified 06/02/17 18:31 [From Vicodin] oxycodone HCl [From Percocet] Allergy Itching Verified 06/02/17 18:31 01 18:32 I have performed a brief in-person evaluation of this patient. The patient presents with a chief complaint of: Persistent diarrhea, abd pain, n /v and weakness. S/p recent admission for UTI C/B cdif, currently on vanco, completed keflex for uti. H/o DM, HTN, polyneuropathy, W/C bound Pertinent physical exam findings:BP 163/101, otherwise stable w/ unremarkable exam I have ordered the following: labs The patient will proceed to the ED for further evaluation. 06/02/17 18:35
[2017-06-02 18:36] VITALS: BP 163/101; PULSE 88; TEMP 98.9; BMI 33.9
[2017-06-02 19:07] LABS: BASO % 1.3 % (0-2.0); EOS % 0.8 % (0-4.5); HEMATOCRIT 40.1 % (32.4-45.2); HEMOGLOBIN 13.5 GM/dL (10.7-15.3); LYMPH % 23.7 % (8-40); MCH 31.8 pg (25.7-33.7); MCHC 33.7 g/dl (32.0-36.0); MEAN CELL VOLUME 94.2 fl (80-96); MEAN PLT VOLUME 8.4 fl (7.5-11.1); NEUT % 69.2 % (42.8-82.8); PLATELET COUNT 173 K/MM3 (134-434); RBC 4.26 M/mm3 (3.60-5.2); RDW 13.7 % (11.6-15.6); WHITE BLOOD COUNT 5.5 K/mm3 (4.0-10.0)
[2017-06-02 19:34] LABS: ALBUMIN 2.8 g/dl (3.4-5.0); ANION GAP 10 (8-16); BILIRUBIN,TOTAL 1.6 mg/dL (0.2-1.0); BLOOD UREA NITROGEN 4 mg/dL (7-18); CALCIUM 8.5 mg/dL (8.5-10.1); CHLORIDE 105 mmol/L (98-107); CO2 25 mmol/L (21-32); CREATININE 0.8 mg/dL (0.55-1.02); GLUCOSE,RANDOM 149 mg/dL (74-106); LIPASE 75 U/L (73-393); SGPT/ALT 26 U/L (12-78); SODIUM 140 mmol/L (136-145); TOT PROT 6.6 g/dl (6.4-8.2)
[2017-06-02 19:35] LABS: ALK PHOS 101 U/L (45-117)
[2017-06-02 19:36] LABS: POTASSIUM 4.1 mmol/L (3.5-5.1); SGOT/AST 44 U/L (15-37)
--- NOTE | 2017-06-02 20:11 | PDOC ---
History of Present Illness - General Chief Complaint: Weakness Stated Complaint: WEAKNESS Time Seen by Provider: 06/02/17 18:32 History Source: Patient - History of Present Illness Initial Comments: 06/02/17 20:41 56 year old female c/o left sided flank pain, Nausea and vomiting yesterday with TMAX 102 at home. as per patient since discharge no improvement in Diarrhea. currently on Cephalexin and Vancomycin for C-diff. patient reports feeling weak and has not taken her routine meds today due to nausea. 06/02/17 20:51 PMHX: reported. Most recent 06/02/17 20:51 Past History - Past Medical History Allergies/Adverse Reactions: Allergies Allergy/AdvReac Type Severity Reaction Status Date / Time shellfish derived Allergy Unknown Rash Verified 06/02/17 18:31 hydrocodone bitartrate Allergy Verified 06/02/17 18:31 [From Vicodin] oxycodone HCl [From Percocet] Allergy Itching Verified 06/02/17 18:31 Home Medications: Ambulatory Orders Cyanocobalamin Vit B-12 Inj. [Vitamin B12 Injection -] 1,000 mcg IM Mo #0 vial 02/20/13 Folic Acid - 1 mg PO DAILY #0 tablet NS 02/20/13 Gabapentin [Neurontin] 600 mg PO Q6H #0 tablet 02/20/13 Lidocaine 5% Patch [Lidoderm -] 1 patch TP DAILY #0 patch 02/20/13 Magnesium Oxide [Mag-Ox -] 400 mg PO BID #0 tablet 02/20/13 Metoprolol Succinate [Toprol XL -] 50 mg PO DAILY #0 tab.sr.24h 02/20/13 Sitagliptin Phos/Metformin HCl [Janumet 50-500 mg Tablet] 1 each PO BIDAC #0 tablet 02/20/13 Tramadol HCl 50 mg PO Q6H PRN #0 tablet 02/20/13 Ergocalciferol (Vitamin D2) [Vitamin D2] 2,000 unit PO DAILY 03/14/13 Insulin (Levemir) [Levemir Flexpen -] 54 units SQ DAILY@0700 05/19/17 Levothyroxine [Synthroid -] 137 mcg PO DAILY 05/19/17 Lisinopril 20 mg PO DAILY 05/19/17 Multivitamin [One Daily] 1 each PO DAILY 05/19/17 Potassium Chloride 20 meq PO BID 05/19/17 Physical Therapy Order 1 each NR ASDIR #1 order 05/23/17 Vancomycin HCl [Vancocin HCl] 125 mg PO ASDIR #105 capsule 05/23/17 Anemia: Yes Asthma: No Cancer: No Cardiac Disorders: No CVA: No COPD: No CHF: No DVT: No Dementia: No Diabetes: Yes (DM) GI Disorders: Yes Disorders: Yes (CIDP, Polycystic Kidney Disease) HTN: Yes Hypercholesterolemia: No Kidney Stones: Yes (polycystic kidney disease) Liver Disease: Yes (Liver Cirrhosis) Seizures: No Thyroid Disease: Yes - Surgical History Abdominal Surgery: No Appendectomy: No Cardiac Surgery: No Cholecystectomy: No Lung Surgery: No Neurologic Surgery: No Orthopedic Surgery: Yes (bunion sx) - Immunization History Td Vaccination: Yes Immunization Up to Date: Yes - Suicide/Smoking/Psychosocial Hx Smoking Status: Yes Smoking History: Former smoker Years of Tobacco Use: 0 Have you smoked in the past 12 months: No Number of Cigarettes Smoked Daily: 0 If you are a former smoker, when did you quit?: 23 years ago Cigars Per Day: 0 Information on smoking cessation initiated: No Hx Alcohol Use: Yes (occassional) Drug/Substance Use Hx: No Substance Use Type: Alcohol Hx Substance Use Treatment: No Review of Systems - Review of Systems Able to Perform ROS?: Yes Is the patient limited Divehi proficient: No Constitutional: Yes: Fever ABD/GI: Yes: Nausea, Vomiting, Abdominal cramping *Physical Exam - Vital Signs Last Vital Signs Temp Pulse Resp BP Pulse Ox 98.9 F 88 18 163/101 100 06/02/17 18:31 06/02/17 18:31 06/02/17 18:31 06/02/17 18:31 06/02/17 18:31 - Physical Exam General Appearance: Yes: Appropriately Dressed Respiratory/Chest: positive: Lungs Clear, Normal Breath Sounds Cardiovascular: positive: Regular Rhythm, Regular Rate Gastrointestinal/Abdominal: positive: Normal Bowel Sounds, Tender (LUQ), Soft Extremity: positive: Normal Capillary Refill, Normal Inspection, Normal Range of Motion, Pedal Edema (b/l pitting edema) Integumentary: positive: Normal Color, Dry, Warm Neurologic: positive: Fully Oriented, Alert, Normal Mood/Affect ED Treatment Course - LABORATORY CBC & Chemistry Diagram: 06/02/17 18:55 06/02/17 18:55 - ADDITIONAL ORDERS Additional order review: Laboratory Results 06/02/17 18:55 Sodium 140 Potassium 4.1 Chloride 105 Carbon Dioxide 25 Anion Gap 10 BUN 4 L D Creatinine 0.8 Creat Clearance w eGFR > 60 Random Glucose 149 H D Calcium 8.5 Total Bilirubin 1.6 H AST 44 H D ALT 26 D Alkaline Phosphatase 101 Total Protein 6.6 Albumin 2.8 L Lipase 75 06/02/17 18:55 RBC 4.26 MCV 94.2 MCHC 33.7 RDW 13.7 MPV 8.4 D Neutrophils % 69.2 D Lymphocytes % 23.7 D Monocytes % 5.0 Eosinophils % 0.8 Basophils % 1.3 - RADIOLOGY Radiograph Interpretation: 06/03/17 00:57 CTAP: Multiple bilateral renal cystic lesions including a small hemorrhagic cyst in the right upper pole and an additional 2 cm indeterminant hyperdensity in the mid left kidney. That no bladder calculi. Unremarkable stomach pancreas and gallbladder. No bowel obstruction, colitis, free fluid or free air. Normal appendix. Diverticulosis: Without acute diverticulitis. Cirrhotic liver, spleen or megaly. 8.1 cm umbilical hernia containing fat. Chronicfractures left superior inferior pubic rami and left posterior rib. Medical Decision Making - Medical Decision Making A: abdominal pain P: CBC,CMP CTAP ua 06/03/17 02:32 patient alert. appears worried. reviewed results. no acute change in CTAP. patient is asking for crackers and water. Patient feel anxious about living byself at home. offered social work consult. patient refused. 06/03/17 03:36 patient able to tolerate PO. feeling better. will d/c home. 06/05/17 06:00 *DC/Admit/Observation/Transfer Diagnosis at time of Disposition: Nausea & vomiting Qualifiers: Vomiting type: unspecified Vomiting Intractability: non-intractable Qualified Code(s): R11.2 - Nausea with vomiting, unspecified Diarrhea Qualifiers: Diarrhea type: unspecified type Qualified Code(s): R19.7 - Diarrhea, unspecified - Discharge Dispostion Disposition: HOME - Referrals Referrals: Brendon Garber DO [Staff Physician] - Call tomorrow - Patient Instructions Printed Discharge Instructions: DI for Nausea -- Adult Additional Instructions: drink plenty of fluids. follow up with your doctor / GI as possible. return to the ED if symptoms worsen. - Post Discharge Activity
[2017-06-02] MEDS ORDERED: SODIUM CHLORIDE 500 ML IV STA (20:33)
[2017-06-02] MEDS ORDERED: ONDANSETRON 4 MG/2 ML VIAL IVPUSH ONE (20:35)
[2017-06-02] MEDS ORDERED: METOPROLOL TARTRATE 50 MG TABLET (FP) PO ONE (20:35)
--- NOTE | 2017-06-02 20:55 | PDOC ---
*Physical Exam - Vital Signs Last Vital Signs Temp Pulse Resp BP Pulse Ox 98.9 F 88 18 163/101 100 06/02/17 18:31 06/02/17 18:31 06/02/17 18:31 06/02/17 18:31 06/02/17 18:31 ED Treatment Course - LABORATORY CBC & Chemistry Diagram: 06/02/17 18:55 06/02/17 18:55 - ADDITIONAL ORDERS Additional order review: Laboratory Results 06/02/17 18:55 Sodium 140 Potassium 4.1 Chloride 105 Carbon Dioxide 25 Anion Gap 10 BUN 4 L D Creatinine 0.8 Creat Clearance w eGFR > 60 Random Glucose 149 H D Calcium 8.5 Total Bilirubin 1.6 H AST 44 H D ALT 26 D Alkaline Phosphatase 101 Total Protein 6.6 Albumin 2.8 L Lipase 75 06/02/17 18:55 RBC 4.26 MCV 94.2 MCHC 33.7 RDW 13.7 MPV 8.4 D Neutrophils % 69.2 D Lymphocytes % 23.7 D Monocytes % 5.0 Eosinophils % 0.8 Basophils % 1.3 Medical Decision Making - Medical Decision Making 06/02/17 20:55 agree with care from ASHLEY Elizalde *DC/Admit/Observation/Transfer Diagnosis at time of Disposition: Nausea & vomiting, Diarrhea - Discharge Dispostion Disposition: HOME - Referrals Referrals: Brendon Garber DO [Staff Physician] - Call tomorrow - Patient Instructions Printed Discharge Instructions: DI for Nausea -- Adult Additional Instructions: drink plenty of fluids. follow up with your doctor / GI as possible. return to the ED if symptoms worsen. - Post Discharge Activity
[2017-06-02] MEDS ORDERED: ONDANSETRON 4 MG/2 ML VIAL ONE (22:36)
[2017-06-02] MEDS ORDERED: METOPROLOL TARTRATE 50 MG TABLET (FP) ONE (22:36)
[2017-06-03] MEDS ORDERED: ONDANSETRON 4 MG/2 ML VIAL IVPUSH ONE (00:51)
[2017-06-03 01:26] LABS: URINE APPEARANCE CLEAR; URINE BILIRUBIN NEGATIVE (NEGATIVE); URINE BLOOD NEGATIVE (NEGATIVE); URINE COLOR YELLOW; URINE GLUCOSE (UA) 1+ (NEGATIVE); URINE KETONE TRACE (NEGATIVE); URINE LEUK ESTERASE TRACE (NEGATIVE); URINE NITRITE NEGATIVE (NEGATIVE); URINE PROTEIN NEGATIVE (NEGATIVE); URINE UROBILINOGEN NEGATIVE mg/dL (0.2-1.0)
[2017-06-03 01:32] LABS: EPI CELLS RARE /HPF (FEW); URINE MUCUS FEW
[2017-06-03] MEDS ORDERED: ONDANSETRON 4 MG/2 ML VIAL ONE (01:41)
[2017-06-03] MEDS ORDERED: SODIUM CHLORIDE 1,000 ML IV SCH (01:45)
== END 2017-06-03 05:10 | disposition home or self-care (01) ==
LOC: JER 18:25
PROC: 3E0337Z Introduction of Electrolytic and Water Balance Substance into Peripheral Vein, Percutaneous Approach (ICD-10-PCS; principal; 2017-06-02)
PROC: 3E033GC Introduction of Other Therapeutic Substance into Peripheral Vein, Percutaneous Approach (ICD-10-PCS; 2017-06-02)
PROC: 3E033GC Introduction of Other Therapeutic Substance into Peripheral Vein, Percutaneous Approach (ICD-10-PCS; 2017-06-02)
DX: R11.2 Nausea with vomiting, unspecified (principal); R19.7 Diarrhea, unspecified; Z86.19 Personal history of other infectious and parasitic diseases; B96.89 Other specified bacterial agents as the cause of diseases classified elsewhere; I10 Essential (primary) hypertension; E11.9 Type 2 diabetes mellitus without complications; Z79.4 Long term (current) use of insulin; E07.9 Disorder of thyroid, unspecified; Q61.3 Polycystic kidney, unspecified; K76.9 Liver disease, unspecified
CPT/HCPCS: 36415; 74176-TC; 80053; 81003; 81015; 83605; 83690; 85025; 87040; 87086; 96361; 96374; 96375; 99285-25